=== PATIENT | female | born 2005 | race Caucasian/White ===

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

== ENCOUNTER → 2025-03-29 14:12 | Outpatient (CLI) | payer OTHER, SELFPAY ==
--- NOTE | 2025-03-29 14:13 | DI.MRI.S_ITS ---
PROCEDURE: MRFOOT LT WO CON INDICATIONS: mid foot pain TECHNIQUE: Multiphasic, multisequence MRI of the forefoot was performed, without intravenous contrast administration. COMPARISON: None. FINDINGS: Image quality: Excellent. Bones and joints: Mild edema involving plantar aspect of 5th metatarsal neck without discrete fracture line or cortical disruption. No other area of abnormal marrow signal is seen. No suspicious intraosseous lesion. Soft tissues: The visualized plantar foot muscles demonstrate normal signal and bulk. Visualized flexor and extensor tendons appear intact, without tenosynovitis. The distal insertions of the peroneus brevis and longus tendons appear intact. The principal Lisfranc ligament appears intact. No bursal fluid collections. Sagittal images demonstrate no definite plantar plate tear. Small ganglion cyst over plantar aspect of 4th MTP joint is seen. IMPRESSION: 1. Likely stress related changes involving plantar aspect of 5th metatarsal base without definite fracture line. No other area of abnormal marrow signal. No suspicious bony lesions. 2. Extensor and flexor tendons of forefoot and midfoot are intact. Lisfranc ligament is intact. 3. No gross plantar foot muscle signal abnormalities. 4. Suggestion of tiny ganglion cyst adjacent to plantar aspect of 4th MTP joint. Dictated by: Pierre Maxwell M.D. on 03/31/2025 at 9:29 Approved by: Pierre Maxwell M.D. on 03/31/2025 at 9:57
== END ==
LOC: MRI 14:13
PROVIDERS: Family Provider Family Medicine; PCP Family Medicine; Referring Provider Family Medicine; Visit Provider Family Medicine
DX: M79.672 Pain in left foot (principal)
CPT/HCPCS: 73718

== ENCOUNTER → 2025-05-26 16:43 | Outpatient (CLI) | payer OTHER, SELFPAY ==
--- NOTE | 2025-05-26 16:44 | DI.RAD.S_ITS ---
PROCEDURE: XR HAND LT MIN 3V INDICATIONS: Traumatic injury left index finger 2 days ago TECHNIQUE: 3 views of the hand(s) acquired. COMPARISON: None. FINDINGS: Bones: Splint material partially obscures detail. No fractures or dislocations. Carpal bones are normally aligned. No suspicious bony lesions. Soft tissues: No suspicious soft tissue calcifications. IMPRESSION: No acute bony abnormality. Dictated by: Ced Prater M.D. on 05/27/2025 at 6:26 Approved by: Ced Prater M.D. on 05/27/2025 at 6:36
== END ==
PROVIDERS: Family Provider Family Medicine; PCP Family Medicine; Referring Provider Family Medicine; Visit Provider Family Medicine
DX: S69.92XA Unspecified injury of left wrist, hand and finger(s), initial encounter (principal); M79.645 Pain in left finger(s); X58.XXXA Exposure to other specified factors, initial encounter
CPT/HCPCS: 73130

== ENCOUNTER 2025-07-02 15:15 | Outpatient (RCR) | payer OTHER, SELFPAY ==
--- NOTE | 2024-12-02 17:45 | PT.OPPOC ---
Physical, Occupational & Speech Therapy At [facility] Current Diagnoses Pain in right knee (12/02/24) Pain in left knee (12/02/24) Visit Care Team Role Provider Type Russ Cottrell DO Attending Provider Physician Family Provider Primary Care Provider Referring Provider Specialty: Family Practice Address: [address] [place] [address], [facility] Email: [email or web address] Plan Of Care PT-OP-B Current Condition Start: 12/02/24 17:50 Freq: Status: Active Protocol: Document 12/02/24 17:00 DCW (Rec: 12/03/24 11:29 DCW [id number]) Current Condition History of Current Condition Current Complaints Bilateral knee pain, R>L History of Current Condition Pt is a 19 year old female presenting with a history of bilateral knee pain. 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 Notes knee pain is worse with activity and kneeling. Dances consistently 3x/week. Additionally, as she is in school in [place], she doesn't have a vehicle, so she does a lot of walking, which after a mile or two starts to bother her knees. Notes she notices a lot of clicking in her knees. Has tried compression sleeves on her knees, which seemed to help some. Additionally notes she had a late diagnosis (at 17 years old) of scoliosis. Treatment Goals Patient/Caregiver Goals Decrease knee pain during dance PT-OP-T Assessment and Plan Start: 12/02/24 17:50 Freq: Status: Active Protocol: Document 12/02/24 17:00 DCW (Rec: 12/03/24 13:38 DCW [id number]) Physical Therapy Assessment Rehab Potential Rehabilitation Potential Good Evaluation Complexity Number of Personal Factors/Comorbidities 1-2 Number of Body Systems Impaired 4 or More Clinical Presentation at Evaluation Evolving Impairments Impairments Functional Activities, Functional Mobility,Pain, Strength,Tone Goals Two 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 Halfway Goal (LTG) Pt to present with improved right VMO contraction in order to improve patellofemoral tracking LTG Duration 01/30/25 One Impairment Pt does not have an appropriate home exercise program Short Term Goal (STG) Pt to be independent and compliant with an appropriate HEP STG Duration 01/02/25 Assessment Summary Assessment Pt presents with signs and symptoms consistent with referring diagnosis of bilateral knee pain. Pt displaying decreased patellofemoral tracking with signs of VMO atrophy bilaterally and likely degenerative changes. 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 Pt will likely benefit from skilled therapeutic intervention focusing on joint mobility and VMO strengthening. Current barrier to rehab is that pt is currently attending classes in [place], and in order to get to her appointments, her grandparents need to drive from [facility] to [place], and then back to [place]. Due to this travel hardship, may need to focus mainly on HEP for 1-2 more visits, and then discharge until pt is able to return to the area during her summer session, but will need to discuss with patient and grandmother over upcoming appointments. Physical Therapy Plan Frequency and Duration Frequency of Treatment 1-2x/week Plan of Care Start Date 12/02/24 Plan of Care End Date 01/30/25 Therapeutic Interventions Therapeutic Interventions Home Exercise Program,Joint Mobilizations,Manual Therapy, Neuromuscular Re-education, Patient/Caregiver Education, Self-Care/Home Management,Soft Tissue Mobilization,Taping, Therapeutic Activities, Therapeutic Exercises Modalities Electric Stimulation Next Visit Focus/Plan Next Note Type Treatment Note Next Visit Plan VMO strengthening, joint mobilization, HEP Plan of Care Dates Plan of Care Start Date 12/02/24 Plan of Care End Date 01/30/25 Electronically Signed by: Bebo Weinberg, PT 12/03/24 0797 If you are in agreement with this Plan of Care, please return a signed and dated copy. I have reviewed this Plan of Care and certify that the skilled therapy services above are required to meet the patient?s needs. Physician Signature Date Printed Name and Credentials Clinical Instructor Signature Printed Name and Credentials
--- NOTE | 2024-12-02 17:45 | PT.OIE ---
Current Diagnoses Pain in right knee (12/02/24) Pain in left knee (12/02/24) Past Medical History (Last Reviewed 11/04/24 @ 13:18 by Russ Cottrell DO) Chondromalacia patellae of right knee Depression Scoliosis (~2020) Speech apraxia Suicidal ideation Well adult exam Visit Care Team Role Provider Type Russ Cottrell DO Attending Provider Physician Family Provider Primary Care Provider Referring Provider Specialty: Family Practice Address: [address] [place] [address], [facility] Email: [email or web address] Physical Therapy Initial Evaluation PT-OP-A Visit Information Start: 12/02/24 17:50 Freq: Status: Active Protocol: Document 12/02/24 17:00 DCW (Rec: 12/02/24 17:53 DCW [id number]) Out-Patient Physical Therapy Visit Information Visit Information Visit Type Initial Evaluation Visit Note Grandmother attends first half of today's assessment Visit Start Time 17:00 Visit Stop Time 17:45 Visit Number 1 Number of CATH LAB RADIOLOGICAL TECHNOLOGIST Visits 0 Evaluation Information Evaluation Date 12/02/24 PT-OP-B Current Condition Start: 12/02/24 17:50 Freq: Status: Active Protocol: Document 12/02/24 17:00 DCW (Rec: 12/03/24 11:29 DCW [id number]) Current Condition History of Current Condition Current Complaints Bilateral knee pain, R>L History of Current Condition Pt is a 19 year old female presenting with a history of bilateral knee pain. 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 Notes knee pain is worse with activity and kneeling. Dances consistently 3x/week. Additionally, as she is in school in [place], she doesn't have a vehicle, so she does a lot of walking, which after a mile or two starts to bother her knees. Notes she notices a lot of clicking in her knees. Has tried compression sleeves on her knees, which seemed to help some. Additionally notes she had a late diagnosis (at 17 years old) of scoliosis. Treatment Goals Patient/Caregiver Goals Decrease knee pain during dance PT-OP-C Subjective Start: 12/02/24 17:50 Freq: Status: Active Protocol: Document 12/02/24 17:00 DCW (Rec: 12/03/24 11:22 DCW [id number]) OP-PT Subjective Patient Comments Patient Comments It really bothers me when I kneel, the knees just don't like direct weight. Patient Questionnaires Lower Extremity Functional Scale LEFS Score 61/80 = 76.25% PT-OP-F Manual Assessment Start: 12/02/24 17:50 Freq: Status: Active Protocol: Document 12/02/24 17:00 DCW (Rec: 12/03/24 11:22 DCW [id number]) Manual Assessments Soft Tissue Assessment Soft Tissue Mobility Assessment 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 Joint Mobility Assessment Joint Mobility Assessment Pain and crepitus with all patellar mobility PT-OP-L Special Tests Start: 12/02/24 17:50 Freq: Status: Active Protocol: Document 12/02/24 17:00 DCW (Rec: 12/03/24 11:22 DCW [id number]) Special Tests Knee Special Tests Patellar Grind Test Test Results Strongly positive R>L Patella Tap Test Results Positive bilaterally Tomasa Test Test Results Negative Cotton Chondromalacia Test Results Positive bilaterally Anterior Draw Test Results Negative PT-OP-M Strength Start: 12/02/24 17:50 Freq: Status: Active Protocol: Document 12/02/24 17:00 DCW (Rec: 12/03/24 11:22 DCW [id number]) Knee Strength Knee Manual Muscle Testing Right Flexion (S2) 4 Good Extension (L3) 4 Good Left Flexion (S2) 4+ Good+ Extension (L3) 4+ Good+ PT-OP-Q Treatments Start: 12/02/24 17:50 Freq: Status: Active Protocol: Document 12/02/24 17:00 DCW (Rec: 12/02/24 17:53 DCW [id number]) Therapeutic Exercises Supine Exercises Bridging Supine Exercise Name Bridging /c adductor ball squeeze SLR Supine Exercise Name SLR /c ER Sidelying Exercises SLR Sidelying Exercise Name SLR - Adduction Standing Exercises Lunge Standing Exercise Name Lunge with medial resistance Resistance Lv 3 Wall Squat Standing Exercise Name Wall Squat /c adductor ball squeeze PT-OP-T Assessment and Plan Start: 12/02/24 17:50 Freq: Status: Active Protocol: Document 12/02/24 17:00 KIKE (Rec: 12/03/24 13:38 [facility] [id number]) Physical Therapy Assessment Rehab Potential Rehabilitation Potential Good Evaluation Complexity Number of Personal Factors/Comorbidities 1-2 Number of Body Systems Impaired 4 or More Clinical Presentation at Evaluation Evolving Impairments Impairments Functional Activities, Functional Mobility,Pain, Strength,Tone Goals Two 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 Paralegal Instructor Goal (LTG) Pt to present with improved right VMO contraction in order to improve patellofemoral tracking LTG Duration 01/30/25 One Impairment Pt does not have an appropriate home exercise program Short Term Goal (STG) Pt to be independent and compliant with an appropriate HEP STG Duration 01/02/25 Assessment Summary Assessment Pt presents with signs and symptoms consistent with referring diagnosis of bilateral knee pain. Pt displaying decreased patellofemoral tracking with signs of VMO atrophy bilaterally and likely degenerative changes. 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 Pt will likely benefit from skilled therapeutic intervention focusing on joint mobility and VMO strengthening. Current barrier to rehab is that pt is currently attending classes in [place], and in order to get to her appointments, her grandparents need to drive from [facility] to [place], and then back to [place]. Due to this travel hardship, may need to focus mainly on HEP for 1-2 more visits, and then discharge until pt is able to return to the area during her summer session, but will need to discuss with patient and grandmother over upcoming appointments. Physical Therapy Plan Frequency and Duration Frequency of Treatment 1-2x/week Plan of Care Start Date 12/02/24 Plan of Care End Date 01/30/25 Therapeutic Interventions Therapeutic Interventions Home Exercise Program,Joint Mobilizations,Manual Therapy, Neuromuscular Re-education, Patient/Caregiver Education, Self-Care/Home Management,Soft Tissue Mobilization,Taping, Therapeutic Activities, Therapeutic Exercises Modalities Electric Stimulation Next Visit Focus/Plan Next Note Type Treatment Note Next Visit Plan VMO strengthening, joint mobilization, HEP
--- NOTE | 2024-12-02 17:45 | PT.OPPOC ---
Physical, Occupational & Speech Therapy At [facility] Current Diagnoses Pain in right knee (12/02/24) Pain in left knee (12/02/24) Visit Care Team Role Provider Type Russ Cottrell DO Attending Provider Physician Family Provider Primary Care Provider Referring Provider Specialty: Family Practice Address: [address] [place] [address], [facility] Email: [email or web address] Plan Of Care PT-OP-B Current Condition Start: 12/02/24 17:50 Freq: Status: Active Protocol: Document 12/02/24 17:00 DCW (Rec: 12/03/24 11:29 DCW [id number]) Current Condition History of Current Condition Current Complaints Bilateral knee pain, R>L History of Current Condition Pt is a 19 year old female presenting with a history of bilateral knee pain. 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 Notes knee pain is worse with activity and kneeling. Dances consistently 3x/week. Additionally, as she is in school in [place], she doesn't have a vehicle, so she does a lot of walking, which after a mile or two starts to bother her knees. Notes she notices a lot of clicking in her knees. Has tried compression sleeves on her knees, which seemed to help some. Additionally notes she had a late diagnosis (at 17 years old) of scoliosis. 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 Pt displaying decreased patellofemoral tracking with signs of VMO atrophy bilaterally and likely degenerative changes. 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 Pt will likely benefit from skilled therapeutic intervention focusing on joint mobility and VMO strengthening. Current barrier to rehab is that pt is currently attending classes in [place], and in order to get to her appointments, her grandparents need to drive from [facility] to [place], and then back to [place]. Due to this travel hardship, may need to focus mainly on HEP for 1-2 more visits, and then discharge until pt is able to return to the area during her summer session, but will need to discuss with patient and grandmother over upcoming appointments. Physical Therapy Plan Frequency and Duration Frequency of Treatment 1-2x/week Plan of Care Start Date 12/02/24 Plan of Care End Date 01/30/25 Therapeutic Interventions Therapeutic Interventions Home Exercise Program,Joint Mobilizations,Manual Therapy, Neuromuscular Re-education, Patient/Caregiver Education, Self-Care/Home Management,Soft Tissue Mobilization,Taping, Therapeutic Activities, Therapeutic Exercises Modalities Electric Stimulation Next Visit Focus/Plan Next Note Type Treatment Note Next Visit Plan VMO strengthening, joint mobilization, HEP Plan of Care Dates Plan of Care Start Date 12/02/24 Plan of Care End Date 01/30/25 Electronically Signed by: Bebo Weinberg, PT 12/03/24 [id number] If you are in agreement with this Plan of Care, please return a signed and dated copy. I have reviewed this Plan of Care and certify that the skilled therapy services above are required to meet the patient?s needs. Physician Signature Date Printed Name and Credentials Clinical Instructor Signature Printed Name and Credentials
--- NOTE | 2024-12-04 17:45 | PT.OTN ---
Current Diagnoses Pain in right knee (12/04/24) Pain in left knee (12/04/24) Physical Therapy Treatment Note PT-OP-A Visit Information Start: 12/02/24 17:50 Freq: Status: Active Protocol: Document 12/04/24 17:03 DCW (Rec: 12/04/24 17:55 DCW [id number]) Out-Patient Physical Therapy Visit Information Visit Information Visit Type Treatment Note Visit Start Time 17:03 Visit Stop Time 17:45 Visit Number 2 Number of SCRUM PROJECT MANAGER Visits 0 Evaluation Information Evaluation Date 12/02/24 PT-OP-B Current Condition Start: 12/02/24 17:50 Freq: Status: Active Protocol: Document 12/02/24 17:00 DCW (Rec: 12/03/24 11:29 DCW [id number]) Current Condition History of Current Condition Current Complaints Bilateral knee pain, R>L History of Current Condition Pt is a 19 year old female presenting with a history of bilateral knee pain. 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 Notes knee pain is worse with activity and kneeling. Dances consistently 3x/week. Additionally, as she is in school in [place], she doesn't have a vehicle, so she does a lot of walking, which after a mile or two starts to bother her knees. Notes she notices a lot of clicking in her knees. Has tried compression sleeves on her knees, which seemed to help some. Additionally notes she had a late diagnosis (at 17 years old) of scoliosis. 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 Joint Mobility Assessment Joint Mobility Assessment Pain and crepitus with all patellar mobility PT-OP-L Special Tests Start: 12/02/24 17:50 Freq: Status: Active Protocol: Document 12/02/24 17:00 DCW (Rec: 12/03/24 11:22 ILW [id number]) Special Tests Knee Special Tests Patellar Grind Test Test Results Strongly positive R>L Patella Tap Test Results Positive bilaterally Tomasa Test Test Results Negative Cotton Chondromalacia Test Results Positive bilaterally Anterior Draw Test Results Negative PT-OP-M Strength Start: 12/02/24 17:50 Freq: Status: Active Protocol: Document 12/02/24 17:00 DCW (Rec: 12/03/24 11:22 ILW [id number]) Knee Strength Knee Manual Muscle Testing Right Flexion (S2) 4 Good Extension (L3) 4 Good Left Flexion (S2) 4+ Good+ Extension (L3) 4+ Good+ PT-OP-Q Treatments Start: 12/02/24 17:50 Freq: Status: Active Protocol: Document 12/04/24 17:03 DCW (Rec: 12/04/24 17:55 DCW [id number]) Gym Equipment Therapeutic Ball Bridging Exercise Details Bridging /c feet on T-ball Ball Size/Color Red - 55 cm Body Position Supine Therapeutic Exercises Supine Exercises Bridging Supine Exercise Name Bridging /c adductor ball squeeze SLR Supine Exercise Name SLR /c ER Standing Exercises ER/IR Standing Exercise Name Half-kneel on stool Side bilateral Resistance Lv 3 BOSU Lunge Standing Exercise Name BOSU Lunge Side bilateral Manual Therapy Treatment Taping Patellofemoral Body Location B PF taping Treatment Focus Increase medial patellar pull Type of Tape Kinesio Tape PT-OP-T Assessment and Plan Start: 12/02/24 17:50 Freq: Status: Active Protocol: Document 12/04/24 17:03 DCW (Rec: 12/04/24 17:55 DC [id number]) Physical Therapy Assessment Impairments Impairments Functional Activities, Functional Mobility,Pain, Strength,Tone Goals Two 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 They were very agreeable to this plan. Reviewed most of HEP today, in addition to trial of K-tape and adding instability to lunges. Physical Therapy Plan Frequency and Duration Frequency of Treatment 1-2x/week Plan of Care Start Date 12/02/24 Plan of Care End Date 01/30/25 Therapeutic Interventions Therapeutic Interventions Home Exercise Program,Joint Mobilizations,Manual Therapy, Neuromuscular Re-education, Patient/Caregiver Education, Self-Care/Home Management,Soft Tissue Mobilization,Taping, Therapeutic Activities, Therapeutic Exercises Modalities Electric Stimulation Next Visit Focus/Plan Next Note Type Treatment Note Next Visit Plan VMO strengthening, joint mobilization, HEP
--- NOTE | 2025-01-10 16:27 | PT.OTN ---
Current Diagnoses Pain in right knee (01/10/25) Pain in left knee (01/10/25) Physical Therapy Treatment Note PT-OP-A Visit Information Start: 12/02/24 17:50 Freq: Status: Active Protocol: Document 01/10/25 15:20 DCW (Rec: 01/10/25 16:27 DCW [id number]) Out-Patient Physical Therapy Visit Information Visit Information Visit Type Treatment Note Visit Start Time 15:20 Visit Stop Time 16:00 Visit Number 3 Number of AUXILIARY EQUIPMENT TENDER Visits 0 Evaluation Information Evaluation Date 12/02/24 PT-OP-B Current Condition Start: 12/02/24 17:50 Freq: Status: Active Protocol: Document 12/02/24 17:00 DCW (Rec: 12/03/24 11:29 DCW [id number]) Current Condition History of Current Condition Current Complaints Bilateral knee pain, R>L History of Current Condition Pt is a 19 year old female presenting with a history of bilateral knee pain. 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 Notes knee pain is worse with activity and kneeling. Dances consistently 3x/week. Additionally, as she is in school in [place], she doesn't have a vehicle, so she does a lot of walking, which after a mile or two starts to bother her knees. Notes she notices a lot of clicking in her knees. Has tried compression sleeves on her knees, which seemed to help some. Additionally notes she had a late diagnosis (at 17 years old) of scoliosis. Treatment Goals Patient/Caregiver Goals Decrease knee pain during dance PT-OP-C Subjective Start: 12/02/24 17:50 Freq: Status: Active Protocol: Document 01/10/25 15:20 DCW (Rec: 01/10/25 16:27 DCW [id number]) OP-PT Subjective Patient Comments Patient Comments Pt suffered a left foot injury last Monday, was seen at [facility], x-rays showed no fracture, pt was told to get crutches and stay NWB on left foot. 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 Joint Mobility Assessment Joint Mobility Assessment Pain and crepitus with all patellar mobility PT-OP-L Special Tests Start: 12/02/24 17:50 Freq: Status: Active Protocol: Document 12/02/24 17:00 DCW (Rec: 12/03/24 11:22 DCW [id number]) Special Tests Knee Special Tests Patellar Grind Test Test Results Strongly positive R>L Patella Tap Test Results Positive bilaterally Tomasa Test Test Results Negative Cotton Chondromalacia Test Results Positive bilaterally Anterior Draw Test Results Negative PT-OP-M Strength Start: 12/02/24 17:50 Freq: Status: Active Protocol: Document 12/02/24 17:00 DCW (Rec: 12/03/24 11:22 DCW [id number]) Knee Strength Knee Manual Muscle Testing Right Flexion (S2) 4 Good Extension (L3) 4 Good Left Flexion (S2) 4+ Good+ Extension (L3) 4+ Good+ PT-OP-Q Treatments Start: 12/02/24 17:50 Freq: Status: Active Protocol: Document 01/10/25 15:20 DCW (Rec: 01/10/25 16:27 DCW [id number]) Therapeutic Exercises Sitting Exercises Mattoon pick-up Sitting Exercise Name Mattoon pick-up Towel Crunch Sitting Exercise Name Towel crunch Short Foot Sitting Exercise Name Short Foor Manual Therapy Treatment Consent Patient gave verbal consent for manual Yes treatment Soft Tissue Mobilization LE Body Location Lower Extremity STM, calf, intrinsic foot musculature PT-OP-T Assessment and Plan Start: 12/02/24 17:50 Freq: Status: Active Protocol: Document 01/10/25 15:20 DCW (Rec: 01/10/25 16:27 DCW [id number]) Physical Therapy Assessment Impairments Impairments Functional Activities, Functional Mobility,Pain, Strength,Tone Goals Two 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 Spent time on intrinsic foot stabilization to help stabilize knee/patella. Physical Therapy Plan Frequency and Duration Frequency of Treatment 1-2x/week Plan of Care Start Date 12/02/24 Plan of Care End Date 01/30/25 Therapeutic Interventions Therapeutic Interventions Home Exercise Program,Joint Mobilizations,Manual Therapy, Neuromuscular Re-education, Patient/Caregiver Education, Self-Care/Home Management,Soft Tissue Mobilization,Taping, Therapeutic Activities, Therapeutic Exercises Modalities Electric Stimulation Next Visit Focus/Plan Next Note Type Progress Note Next Visit Plan VMO strengthening, joint mobilization, HEP
--- NOTE | 2025-01-20 16:10 | PT.OTN ---
Current Diagnoses Pain in right knee (01/20/25) Pain in left knee (01/20/25) Physical Therapy Treatment Note PT-OP-A Visit Information Start: 12/02/24 17:50 Freq: Status: Active Protocol: Document 01/20/25 15:15 DCW (Rec: 01/20/25 16:09 DCW [id number]) Out-Patient Physical Therapy Visit Information Visit Information Visit Type Progress Note Visit Start Time 15:15 Visit Stop Time 16:00 Visit Number 4 Number of FRAMING MILL OPERATOR Visits 0 Evaluation Information Evaluation Date 12/02/24 PT-OP-B Current Condition Start: 12/02/24 17:50 Freq: Status: Active Protocol: Document 12/02/24 17:00 DCW (Rec: 12/03/24 11:29 DCW [id number]) Current Condition History of Current Condition Current Complaints Bilateral knee pain, R>L History of Current Condition Pt is a 19 year old female presenting with a history of bilateral knee pain. 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 Notes knee pain is worse with activity and kneeling. Dances consistently 3x/week. Additionally, as she is in school in [place], she doesn't have a vehicle, so she does a lot of walking, which after a mile or two starts to bother her knees. Notes she notices a lot of clicking in her knees. Has tried compression sleeves on her knees, which seemed to help some. Additionally notes she had a late diagnosis (at 17 years old) of scoliosis. Treatment Goals Patient/Caregiver Goals Decrease knee pain during dance PT-OP-C Subjective Start: 12/02/24 17:50 Freq: Status: Active Protocol: Document 01/20/25 15:15 DCW (Rec: 01/20/25 16:09 DCW [id number]) OP-PT Subjective Patient Comments Patient Comments Is able to perform non-weight bearing HEP during her dance classes instead of the class work as long as she pays attention. 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 Joint Mobility Assessment Joint Mobility Assessment Pain and crepitus with all patellar mobility PT-OP-L Special Tests Start: 12/02/24 17:50 Freq: Status: Active Protocol: Document 12/02/24 17:00 DCW (Rec: 12/03/24 11:22 DCW [id number]) Special Tests Knee Special Tests Patellar Grind Test Test Results Strongly positive R>L Patella Tap Test Results Positive bilaterally Tomasa Test Test Results Negative Cotton Chondromalacia Test Results Positive bilaterally Anterior Draw Test Results Negative PT-OP-M Strength Start: 12/02/24 17:50 Freq: Status: Active Protocol: Document 12/02/24 17:00 DCW (Rec: 12/03/24 11:22 [id number]) Knee Strength Knee Manual Muscle Testing Right Flexion (S2) 4 Good Extension (L3) 4 Good Left Flexion (S2) 4+ Good+ Extension (L3) 4+ Good+ PT-OP-Q Treatments Start: 12/02/24 17:50 Freq: Status: Active Protocol: Document 01/20/25 15:15 DCW (Rec: 01/20/25 16:09 DCW [id number]) Gym Equipment Therapeutic Ball Hip Flexion Exercise Details Resisted hip/knee flexion Ball Size/Color Red - 55 cm Lv 3 T-band Bridging Exercise Details Bridging /c feet on T-ball Ball Size/Color Red - 55 cm Body Position Supine Comments Added Hamstring Curls Therapeutic Exercises Sitting Exercises Ankle Flexion Sitting Exercise Name 4-way ankle flexion Side bilateral Resistance Lv 3 PT-OP-T Assessment and Plan Start: 12/02/24 17:50 Freq: Status: Active Protocol: Document 01/20/25 15:15 DCW (Rec: 01/20/25 16:09 DCW [id number]) Physical Therapy Assessment Impairments Impairments Functional Activities, Functional Mobility,Pain, Strength,Tone Goals Two 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 NWB has resulted in increased right knee pain. continue to focus on functional mobility, pain- control, and return to sport. Physical Therapy Plan Frequency and Duration Frequency of Treatment 1-2x/week Plan of Care Start Date 01/20/25 Plan of Care End Date 04/20/25 Therapeutic Interventions Therapeutic Interventions Home Exercise Program,Joint Mobilizations,Manual Therapy, Neuromuscular Re-education, Patient/Caregiver Education, Self-Care/Home Management,Soft Tissue Mobilization,Taping, Therapeutic Activities, Therapeutic Exercises Modalities Electric Stimulation Next Visit Focus/Plan Next Note Type Treatment Note Next Visit Plan VMO strengthening, joint mobilization, HEP
--- NOTE | 2025-01-20 16:11 | PT.OPPOC ---
Physical, Occupational & Speech Therapy At [facility] Current Diagnoses Pain in right knee (01/20/25) Pain in left knee (01/20/25) Visit Care Team Role Provider Type Russ Cottrell DO Attending Provider Physician Family Provider Primary Care Provider Referring Provider Specialty: Family Practice Address: [address] [place] [address], [facility] Email: [email or web address] Plan Of Care PT-OP-B Current Condition Start: 12/02/24 17:50 Freq: Status: Active Protocol: Document 12/02/24 17:00 DCW (Rec: 12/03/24 11:29 DCW [id number]) Current Condition History of Current Condition Current Complaints Bilateral knee pain, R>L History of Current Condition Pt is a 19 year old female presenting with a history of bilateral knee pain. 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 Notes knee pain is worse with activity and kneeling. Dances consistently 3x/week. Additionally, as she is in school in [place], she doesn't have a vehicle, so she does a lot of walking, which after a mile or two starts to bother her knees. Notes she notices a lot of clicking in her knees. Has tried compression sleeves on her knees, which seemed to help some. Additionally notes she had a late diagnosis (at 17 years old) of scoliosis. 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 NWB has resulted in increased right knee pain. continue to focus on functional mobility, pain- control, and return to sport. Physical Therapy Plan Frequency and Duration Frequency of Treatment 1-2x/week Plan of Care Start Date 01/20/25 Plan of Care End Date 04/20/25 Therapeutic Interventions Therapeutic Interventions Home Exercise Program,Joint Mobilizations,Manual Therapy, Neuromuscular Re-education, Patient/Caregiver Education, Self-Care/Home Management,Soft Tissue Mobilization,Taping, Therapeutic Activities, Therapeutic Exercises Modalities Electric Stimulation Next Visit Focus/Plan Next Note Type Treatment Note Next Visit Plan VMO strengthening, joint mobilization, HEP Plan of Care Dates Plan of Care Start Date 01/20/25 Plan of Care End Date 04/20/25 Electronically Signed by: Bebo Weinberg, PT 01/20/25 [id number] If you are in agreement with this Plan of Care, please return a signed and dated copy. I have reviewed this Plan of Care and certify that the skilled therapy services above are required to meet the patient?s needs. Physician Signature Date Printed Name and Credentials Clinical Instructor Signature Printed Name and Credentials
--- NOTE | 2025-02-21 15:16 | PT.OTN ---
Current Diagnoses Pain in right knee (02/21/25) Pain in left knee (02/21/25) Physical Therapy Treatment Note PT-OP-A Visit Information Start: 12/02/24 17:50 Freq: Status: Active Protocol: Document 02/21/25 14:30 DCW (Rec: 02/21/25 15:16 DCW [id number]) Out-Patient Physical Therapy Visit Information Visit Information Visit Type Treatment Note Visit Start Time 14:30 Visit Stop Time 15:15 Visit Number 5 Number of CORE JAVA ENGINEER Visits 0 Evaluation Information Evaluation Date 12/02/24 PT-OP-B Current Condition Start: 12/02/24 17:50 Freq: Status: Active Protocol: Document 12/02/24 17:00 DCW (Rec: 12/03/24 11:29 DCW [id number]) Current Condition History of Current Condition Current Complaints Bilateral knee pain, R>L History of Current Condition Pt is a 19 year old female presenting with a history of bilateral knee pain. 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 Notes knee pain is worse with activity and kneeling. Dances consistently 3x/week. Additionally, as she is in school in [place], she doesn't have a vehicle, so she does a lot of walking, which after a mile or two starts to bother her knees. Notes she notices a lot of clicking in her knees. Has tried compression sleeves on her knees, which seemed to help some. Additionally notes she had a late diagnosis (at 17 years old) of scoliosis. Treatment Goals Patient/Caregiver Goals Decrease knee pain during dance PT-OP-C Subjective Start: 12/02/24 17:50 Freq: Status: Active Protocol: Document 02/21/25 14:30 DCW (Rec: 02/21/25 15:16 DCW [id number]) OP-PT Subjective Patient Comments Patient Comments Pt notes increased bilateral ankle pain when up walking. Has had a few dance classes, and she's not fully participating, but is getting back into it. Notes some cramping in her right foot. PT-OP-F Manual Assessment Start: 12/02/24 17:50 Freq: Status: Active Protocol: Document 12/02/24 17:00 DCW (Rec: 12/03/24 11:22 DCW [id number]) Manual Assessments Soft Tissue Assessment Soft Tissue Mobility Assessment 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 Joint Mobility Assessment Joint Mobility Assessment Pain and crepitus with all patellar mobility PT-OP-L Special Tests Start: 12/02/24 17:50 Freq: Status: Active Protocol: Document 12/02/24 17:00 DCW (Rec: 12/03/24 11:22 DCW [id number]) Special Tests Knee Special Tests Patellar Grind Test Test Results Strongly positive R>L Patella Tap Test Results Positive bilaterally Tomasa Test Test Results Negative Cotton Chondromalacia Test Results Positive bilaterally Anterior Draw Test Results Negative PT-OP-M Strength Start: 12/02/24 17:50 Freq: Status: Active Protocol: Document 12/02/24 17:00 DCW (Rec: 12/03/24 11:22 DCW [id number]) Knee Strength Knee Manual Muscle Testing Right Flexion (S2) 4 Good Extension (L3) 4 Good Left Flexion (S2) 4+ Good+ Extension (L3) 4+ Good+ PT-OP-Q Treatments Start: 12/02/24 17:50 Freq: Status: Active Protocol: Document 02/21/25 14:30 DCW (Rec: 02/21/25 15:16 DCW [id number]) Gym Equipment Therapeutic Ball Bridging Exercise Details Bridging /c feet on T-ball Ball Size/Color Red - 55 cm Body Position Supine Comments Hamstring Curls Therapeutic Exercises Sitting Exercises Abduction Sitting Exercise Name Hip Abduction Side bilateral Resistance Blue Loop Reps/Minutes 1 minute hold x2 Self STM Sitting Exercise Name Self rolling calf Side right Manual Therapy Treatment Consent Patient gave verbal consent for manual Yes treatment Soft Tissue Mobilization LE Body Location Lower Extremity STM, calf, Hamstring PT-OP-T Assessment and Plan Start: 12/02/24 17:50 Freq: Status: Active Protocol: Document 02/21/25 14:30 DCW (Rec: 02/21/25 15:16 DCW [id number]) Physical Therapy Assessment Impairments Impairments Functional Activities, Functional Mobility,Pain, Strength,Tone Goals Two 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 [facility] Goal (LTG) Pt to present with improved right VMO contraction in order to improve patellofemoral tracking LTG Duration 04/20/25 One Impairment Pt does not have an appropriate home exercise program Short Term Goal (STG) Pt to be independent and compliant with an appropriate HEP STG Duration 03/20/25 Assessment Summary Assessment Pt continuing to experience knee pain, has been slightly worse since her foot injury, due to changes to her gait, but is returning to somewhat normalized gait pattern, will hopefully help with decreasing knee pain. Continue working on knee strengthening and mobility. Physical Therapy Plan Frequency and Duration Frequency of Treatment 1-2x/week Plan of Care Start Date 01/20/25 Plan of Care End Date 04/20/25 Therapeutic Interventions Therapeutic Interventions Home Exercise Program,Joint Mobilizations,Manual Therapy, Neuromuscular Re-education, Patient/Caregiver Education, Self-Care/Home Management,Soft Tissue Mobilization,Taping, Therapeutic Activities, Therapeutic Exercises Modalities Electric Stimulation Next Visit Focus/Plan Next Note Type Treatment Note Next Visit Plan VMO strengthening, joint mobilization, HEP
--- NOTE | 2025-03-26 12:59 | PT.OTN ---
Current Diagnoses Pain in right knee (03/26/25) Pain in left knee (03/26/25) Physical Therapy Treatment Note PT-OP-A Visit Information Start: 12/02/24 17:50 Freq: Status: Active Protocol: Document 03/26/25 12:18 DCW (Rec: 03/26/25 12:59 DCW [id number]) Out-Patient Physical Therapy Visit Information Visit Information Visit Type Treatment Note Visit Start Time 12:18 Visit Stop Time 13:00 Visit Number 6 Number of ELECTRONICS REPAIR TECHNICIAN Visits 0 Evaluation Information Evaluation Date 12/02/24 PT-OP-B Current Condition Start: 12/02/24 17:50 Freq: Status: Active Protocol: Document 12/02/24 17:00 DCW (Rec: 12/03/24 11:29 DCW [id number]) Current Condition History of Current Condition Current Complaints Bilateral knee pain, R>L History of Current Condition Pt is a 19 year old female presenting with a history of bilateral knee pain. 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 Notes knee pain is worse with activity and kneeling. Dances consistently 3x/week. Additionally, as she is in school in [place], she doesn't have a vehicle, so she does a lot of walking, which after a mile or two starts to bother her knees. Notes she notices a lot of clicking in her knees. Has tried compression sleeves on her knees, which seemed to help some. Additionally notes she had a late diagnosis (at 17 years old) of scoliosis. Treatment Goals Patient/Caregiver Goals Decrease knee pain during dance PT-OP-C Subjective Start: 12/02/24 17:50 Freq: Status: Active Protocol: Document 03/26/25 12:18 DCW (Rec: 03/26/25 12:59 DCW [id number]) OP-PT Subjective Patient Comments Patient Comments Everything is flared up right now. Notes her knee is pretty bad, and her previously injured foot was quite sore earlier, but doing a bit better after icing. [place] she was getting better up until the recent set backs. PT-OP-F Manual Assessment Start: 12/02/24 17:50 Freq: Status: Active Protocol: Document 12/02/24 17:00 DCW (Rec: 12/03/24 11:22 DCW [id number]) Manual Assessments Soft Tissue Assessment Soft Tissue Mobility Assessment 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 Joint Mobility Assessment Joint Mobility Assessment Pain and crepitus with all patellar mobility PT-OP-L Special Tests Start: 12/02/24 17:50 Freq: Status: Active Protocol: Document 12/02/24 17:00 DCW (Rec: 12/03/24 11:22 WYW [id number]) Special Tests Knee Special Tests Patellar Grind Test Test Results Strongly positive R>L Patella Tap Test Results Positive bilaterally Tomasa Test Test Results Negative Cotton Chondromalacia Test Results Positive bilaterally Anterior Draw Test Results Negative PT-OP-M Strength Start: 12/02/24 17:50 Freq: Status: Active Protocol: Document 12/02/24 17:00 DCW (Rec: 12/03/24 11:22 WYW [id number]) Knee Strength Knee Manual Muscle Testing Right Flexion (S2) 4 Good Extension (L3) 4 Good Left Flexion (S2) 4+ Good+ Extension (L3) 4+ Good+ PT-OP-Q Treatments Start: 12/02/24 17:50 Freq: Status: Active Protocol: Document 03/26/25 12:18 DCW (Rec: 03/26/25 12:59 [facility] [id number]) Gym Equipment Shuttle Recovery Bilateral Squats Details Add ball squeeze Resistance 75# Shuttle Recovery Platform Stable,Unstable Hopping Details Plyometric Hopping Resistance 25# Shuttle Balance Red Details Lateral weight shift Therapeutic Ball Bridging Exercise Details Bridging /c feet on T-ball Ball Size/Color Red - 55 cm Body Position Supine Comments Hamstring Curls Manual Therapy Treatment Consent Patient gave verbal consent for manual Yes treatment Soft Tissue Mobilization LE Body Location Lower Extremity STM, calf, Hamstring Joint Mobilizations Patella Joint R Patella Direction All directions Grade III Body Position Supine PT-OP-T Assessment and Plan Start: 12/02/24 17:50 Freq: Status: Active Protocol: Document 03/26/25 12:18 DCW (Rec: 03/26/25 12:59 WYW [id number]) Physical Therapy Assessment Impairments Impairments Functional Activities, Functional Mobility,Pain, Strength,Tone Goals Two 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 Health And Safety Director Goal (LTG) Pt to present with improved right VMO contraction in order to improve patellofemoral tracking LTG Duration 04/20/25 One Impairment Pt does not have an appropriate home exercise program Short Term Goal (STG) Pt to be independent and compliant with an appropriate HEP STG Duration 03/20/25 Assessment Summary Assessment Increased tenderness to palpation today, pt fairly sore with all manual treatment , as well as notable increased edema under patella. Pt tolerated strengthening fairly well. Continue to focus on joint stability, LE strengthening, and return to prior functional levels. Physical Therapy Plan Frequency and Duration Frequency of Treatment 1-2x/week Plan of Care Start Date 01/20/25 Plan of Care End Date 04/20/25 Therapeutic Interventions Therapeutic Interventions Home Exercise Program,Joint Mobilizations,Manual Therapy, Neuromuscular Re-education, Patient/Caregiver Education, Self-Care/Home Management,Soft Tissue Mobilization,Taping, Therapeutic Activities, Therapeutic Exercises Modalities Electric Stimulation Next Visit Focus/Plan Next Note Type Treatment Note Next Visit Plan VMO strengthening, joint mobilization, HEP
--- NOTE | 2025-04-04 15:17 | PT.OTN ---
Current Diagnoses Pain in right knee (04/04/25) Pain in left knee (04/04/25) Physical Therapy Treatment Note PT-OP-A Visit Information Start: 12/02/24 17:50 Freq: Status: Active Protocol: Document 04/04/25 14:30 DCW (Rec: 04/04/25 15:14 DCW [id number]) Out-Patient Physical Therapy Visit Information Visit Information Visit Type Treatment Note Visit Start Time 14:30 Visit Stop Time 15:15 Visit Number 7 Number of PRESCRIPTION BENEFIT SPECIALIST Visits 0 Evaluation Information Evaluation Date 12/02/24 PT-OP-B Current Condition Start: 12/02/24 17:50 Freq: Status: Active Protocol: Document 12/02/24 17:00 DCW (Rec: 12/03/24 11:29 DCW [id number]) Current Condition History of Current Condition Current Complaints Bilateral knee pain, R>L History of Current Condition Pt is a 19 year old female presenting with a history of bilateral knee pain. 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 Notes knee pain is worse with activity and kneeling. Dances consistently 3x/week. Additionally, as she is in school in [place], she doesn't have a vehicle, so she does a lot of walking, which after a mile or two starts to bother her knees. Notes she notices a lot of clicking in her knees. Has tried compression sleeves on her knees, which seemed to help some. Additionally notes she had a late diagnosis (at 17 years old) of scoliosis. Treatment Goals Patient/Caregiver Goals Decrease knee pain during dance PT-OP-C Subjective Start: 12/02/24 17:50 Freq: Status: Active Protocol: Document 04/04/25 14:30 DCW (Rec: 04/04/25 15:14 DCW [id number]) OP-PT Subjective Patient Comments Patient Comments Notes she had an MRI on her foot, no results yet. Reports her foot was twitching during her MRI. Also notes left distal thigh pain. 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 Joint Mobility Assessment Joint Mobility Assessment Pain and crepitus with all patellar mobility PT-OP-L Special Tests Start: 12/02/24 17:50 Freq: Status: Active Protocol: Document 12/02/24 17:00 DCW (Rec: 12/03/24 11:22 DCW [id number]) Special Tests Knee Special Tests Patellar Grind Test Test Results Strongly positive R>L Patella Tap Test Results Positive bilaterally Tomasa Test Test Results Negative Cotton Chondromalacia Test Results Positive bilaterally Anterior Draw Test Results Negative PT-OP-M Strength Start: 12/02/24 17:50 Freq: Status: Active Protocol: Document 12/02/24 17:00 DCW (Rec: 12/03/24 11:22 DCW [id number]) Knee Strength Knee Manual Muscle Testing Right Flexion (S2) 4 Good Extension (L3) 4 Good Left Flexion (S2) 4+ Good+ Extension (L3) 4+ Good+ PT-OP-Q Treatments Start: 12/02/24 17:50 Freq: Status: Active Protocol: Document 04/04/25 14:30 DCW (Rec: 04/04/25 15:14 DCW [id number]) Gym Equipment Shuttle Recovery Bilateral Squats Details Add ball squeeze Resistance 75#->87# Shuttle Recovery Platform Unstable Hopping Details Plyometric Hopping Resistance 25# Therapeutic Ball Bridging Exercise Details Bridging /c feet on T-ball Ball Size/Color Red - 55 cm Body Position Supine Comments Hamstring Curls Therapeutic Exercises Supine Exercises ITB Stretch Supine Exercise Name Supine ITB Stretch Side bilateral Manual Therapy Treatment Consent Patient gave verbal consent for manual Yes treatment Soft Tissue Mobilization LE Body Location Lower Extremity STM, calf, Hamstring L>R Joint Mobilizations Patella Joint R Patella Direction All directions Grade III Body Position Supine PT-OP-R Modalities Start: 04/04/25 15:14 Freq: Status: Active Protocol: Document 04/04/25 14:30 DCW (Rec: 04/04/25 15:17 DCW [id number]) Electric Stimulation Electric Stimulation Maltese Stimulation Body Location R VMO Intensity 22.5 Patient Position Sitting Comments LAQ with contraction, 5 on/5 off PT-OP-T Assessment and Plan Start: 12/02/24 17:50 Freq: Status: Active Protocol: Document 04/04/25 14:30 DCW (Rec: 04/04/25 15:14 DCW [id number]) Physical Therapy Assessment Impairments Impairments Functional Activities, Functional Mobility,Pain, Strength,Tone Goals Two 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 [facility] Goal (LTG) Pt to present with improved right VMO contraction in order to improve patellofemoral tracking LTG Duration 04/20/25 One Impairment Pt does not have an appropriate home exercise program Short Term Goal (STG) Pt to be independent and compliant with an appropriate HEP STG Duration 03/20/25 Assessment Summary Assessment Attempted Maltese stim to help VMO contraction, pt only tolerated for two minutes, however afterward did show increased R VMO activation. Overall, continues to be fairly limited by knee pain, but foot pain is getting better. Continue to focus on patella tracking and VMO strengthening. Physical Therapy Plan Frequency and Duration Frequency of Treatment 1-2x/week Plan of Care Start Date 01/20/25 Plan of Care End Date 04/20/25 Therapeutic Interventions Therapeutic Interventions Home Exercise Program,Joint Mobilizations,Manual Therapy, Neuromuscular Re-education, Patient/Caregiver Education, Self-Care/Home Management,Soft Tissue Mobilization,Taping, Therapeutic Activities, Therapeutic Exercises Modalities Electric Stimulation Next Visit Focus/Plan Next Note Type Treatment Note Next Visit Plan VMO strengthening, joint mobilization, HEP
--- NOTE | 2025-04-09 14:48 | PT.OTN ---
Current Diagnoses Pain in right knee (04/09/25) Pain in left knee (04/09/25) Physical Therapy Treatment Note PT-OP-A Visit Information Start: 12/02/24 17:50 Freq: Status: Active Protocol: Document 04/09/25 13:43 AB (Rec: 04/09/25 14:44 AB Laptop) Out-Patient Physical Therapy Visit Information Visit Information Visit Type Treatment Note Visit Start Time 13:48 Visit Stop Time 14:34 Visit Number 8 Number of QUALITY CONTROL ENGINEER Visits 1 PT-OP-B Current Condition Start: 12/02/24 17:50 Freq: Status: Active Protocol: Document 12/02/24 17:00 DCW (Rec: 12/03/24 11:29 DCW [id number]) Current Condition History of Current Condition Current Complaints Bilateral knee pain, R>L History of Current Condition Pt is a 19 year old female presenting with a history of bilateral knee pain. 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 Notes knee pain is worse with activity and kneeling. Dances consistently 3x/week. Additionally, as she is in school in [place], she doesn't have a vehicle, so she does a lot of walking, which after a mile or two starts to bother her knees. Notes she notices a lot of clicking in her knees. Has tried compression sleeves on her knees, which seemed to help some. Additionally notes she had a late diagnosis (at 17 years old) of scoliosis. Treatment Goals Patient/Caregiver Goals Decrease knee pain during dance PT-OP-C Subjective Start: 12/02/24 17:50 Freq: Status: Active Protocol: Document 04/09/25 13:43 AB (Rec: 04/09/25 14:44 AB Laptop) OP-PT Subjective Patient Comments Patient Comments Patient reports she is going to get her MRI results tomorrow. 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 Joint Mobility Assessment Joint Mobility Assessment Pain and crepitus with all patellar mobility PT-OP-L Special Tests Start: 12/02/24 17:50 Freq: Status: Active Protocol: Document 12/02/24 17:00 DCW (Rec: 12/03/24 11:22 DCW [id number]) Special Tests Knee Special Tests Patellar Grind Test Test Results Strongly positive R>L Patella Tap Test Results Positive bilaterally oTmasa Test Test Results Negative Cotton Chondromalacia Test Results Positive bilaterally Anterior Draw Test Results Negative PT-OP-M Strength Start: 12/02/24 17:50 Freq: Status: Active Protocol: Document 12/02/24 17:00 DCW (Rec: 12/03/24 11:22 DCW [id number]) Knee Strength Knee Manual Muscle Testing Right Flexion (S2) 4 Good Extension (L3) 4 Good Left Flexion (S2) 4+ Good+ Extension (L3) 4+ Good+ PT-OP-Q Treatments Start: 12/02/24 17:50 Freq: Status: Active Protocol: Document 04/09/25 13:43 AB (Rec: 04/09/25 14:44 AB Laptop) Therapeutic Exercises Supine Exercises SLR Supine Exercise Name SLR /c ER Reps/Minutes X15 Comments Verbal cues Sidelying Exercises sidelying hip abd Sidelying Exercise Name HEP Side bilateral Resistance level 4 band Reps/Minutes X 15 each LE then one minute R LE .5 min L LE for activation Therapeutic Activity Therapeutic Activity stairs Reps/Minutes 4 six inch steps with and without rails X 3/reciprocal pattern. Comments Verbal and visual cues for less quad dominant pattern Manual Therapy Treatment Soft Tissue Mobilization LE Body Location Lower Extremity STM, calf, Hamstring L>R Mobilization Type Cross-Friction,Instrument Assisted,Rolling Comments cupping with AROM DF PF and AROM knee flexion Taping Patellofemoral Body Location B PF taping Treatment Focus Increase medial patellar pull and unload fat pad Type of Tape Kinesio Tape PT-OP-R Modalities Start: 04/04/25 15:14 Freq: Status: Active Protocol: Document 04/04/25 14:30 DCW (Rec: 04/04/25 15:17 DCW [id number]) Electric Stimulation Electric Stimulation Lebanese Stimulation Body Location R VMO Intensity 22.5 Patient Position Sitting Comments LAQ with contraction, 5 on/5 off PT-OP-T Assessment and Plan Start: 12/02/24 17:50 Freq: Status: Active Protocol: Document 04/09/25 13:43 AB (Rec: 04/09/25 14:44 AB Laptop) Physical Therapy Assessment Goals Two 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 Wrestling Coach Goal (LTG) Pt to present with improved right VMO contraction in order to improve patellofemoral tracking LTG Duration 04/20/25 One Impairment Pt does not have an appropriate home exercise program Short Term Goal (STG) Pt to be independent and compliant with an appropriate HEP STG Duration 03/20/25 Assessment Summary Assessment Patient reports hip soreness 2 -01/20 end of session. Unable to position pads for e- stim due to difficulty accessing area due to clothing tightness with patient reporting she didn't really like the stim post offer of shorts. Physical Therapy Plan Frequency and Duration Frequency of Treatment 1-2x/week Plan of Care Start Date 01/20/25 Plan of Care End Date 04/20/25 Therapeutic Interventions Therapeutic Interventions Home Exercise Program,Joint Mobilizations,Manual Therapy, Neuromuscular Re-education, Patient/Caregiver Education, Self-Care/Home Management,Soft Tissue Mobilization,Taping, Therapeutic Activities, Therapeutic Exercises Modalities Electric Stimulation Next Visit Focus/Plan Next Note Type Treatment Note Next Visit Plan VMO strengthening, joint mobilization, HEP
--- NOTE | 2025-04-18 13:06 | PT.OTN ---
Current Diagnoses Pain in right knee (04/18/25) Pain in left knee (04/18/25) Physical Therapy Treatment Note PT-OP-A Visit Information Start: 12/02/24 17:50 Freq: Status: Active Protocol: Document 04/18/25 12:18 DCW (Rec: 04/18/25 13:05 DCW [id number]) Out-Patient Physical Therapy Visit Information Visit Information Visit Type Progress Note Visit Start Time 12:18 Visit Stop Time 13:00 Visit Number 9 Number of PUMP RUNNER Visits 0 PT-OP-B Current Condition Start: 12/02/24 17:50 Freq: Status: Active Protocol: Document 12/02/24 17:00 DCW (Rec: 12/03/24 11:29 DCW [id number]) Current Condition History of Current Condition Current Complaints Bilateral knee pain, R>L History of Current Pt is a 19 year old female presenting with a history of Condition bilateral knee pain. 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 Notes knee pain is worse with activity and kneeling. Dances consistently 3x/week. Additionally, as she is in school in [place], she doesn 't have a vehicle, so she does a lot of walking, which after a mile or two starts to bother her knees. Notes she notices a lot of clicking in her knees. Has tried compression sleeves on her knees, which seemed to help some. Additionally notes she had a late diagnosis ( at 17 years old) of scoliosis. Treatment Goals Patient/Caregiver Decrease knee pain during dance Goals PT-OP-C Subjective Start: 12/02/24 17:50 Freq: Status: Active Protocol: Document 04/18/25 12:18 DCW (Rec: 04/18/25 12:22 DCW [id number]) OP-PT Subjective Patient Comments Patient Comments Pt reports she recently got a new job, so she's on her feet a lot more. Her foot has been sore the past two day, notes she is basically sore at work all day, but mainly in her back. PT-OP-F Manual Assessment Start: 12/02/24 17:50 Freq: Status: Active Protocol: Document 04/18/25 12:18 DCW (Rec: 04/18/25 12:46 DCW [id number]) Manual Assessments Soft Tissue Assessment Soft Tissue Mobility 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 Assessment Joint Mobility Assessment Joint Mobility Pain and crepitus with all patellar mobility, Assessment tenderness in left foot with joint mobilization PT-OP-L Special Tests Start: 12/02/24 17:50 Freq: Status: Active Protocol: Document 04/18/25 12:18 DCW (Rec: 04/18/25 12:46 DCW [id number]) Special Tests Knee Special Tests Patellar Grind Test Test Results Strongly positive R>L Patella Tap Test Results Negative Tomasa Test Test Results Negative Cotton Chondromalacia Test Results Positive bilaterally Anterior Draw Test Results Negative PT-OP-M Strength Start: 12/02/24 17:50 Freq: Status: Active Protocol: Document 04/18/25 12:18 DCW (Rec: 04/18/25 12:46 DCW [id number]) Hip Strength Hip Manual Muscle Testing Right External Rotation 3+ Fair+ Internal Rotation 4+ Good+ Left External Rotation 3+ Fair+ Internal Rotation 5 Normal Knee Strength Knee Manual Muscle Testing Right Flexion (S2) 4 Good Extension (L3) 4 Good Left Flexion (S2) 4+ Good+ Extension (L3) 4+ Good+ PT-OP-Q Treatments Start: 12/02/24 17:50 Freq: Status: Active Protocol: Document 04/18/25 12:18 DCW (Rec: 04/18/25 13:05 DCW [id number]) Therapeutic Exercises Sidelying Exercises Reverse Clamshell Sidelying Exercise Reverse Clamshell Name Side bilateral Resistance Lv 3 Clamshell Sidelying Exercise Clamshell Name Side bilateral Resistance Lv 3 PT-OP-R Modalities Start: 04/04/25 15:14 Freq: Status: Active Protocol: Document 04/04/25 14:30 DCW (Rec: 04/04/25 15:17 DCW [id number]) Electric Stimulation Electric Stimulation [place] Stimulation Body Location R VMO Intensity 22.5 Patient Position Sitting Comments LAQ with contraction, 5 on/5 off PT-OP-T Assessment and Plan Start: 12/02/24 17:50 Freq: Status: Active Protocol: Document 04/18/25 12:18 DCW (Rec: 04/18/25 13:05 DCW [id number]) Physical Therapy Assessment Impairments Impairments Functional Activities,Functional Mobility,Pain,Strength ,Tone Goals Two 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 Superintendent Car [employer] Goal (LTG) Pt to present with improved right VMO contraction in order to improve patellofemoral tracking LTG Duration 06/18/25 One Impairment Pt does not have an appropriate home exercise program Short Term Goal (STG Pt to be independent and compliant with an appropriate ) HEP STG Duration 05/18/25 Assessment Summary Assessment Pt showing some moderate progress overall, improvement with her VMO contraction and slight patellar tracking improvement. Does continue to exhibit grinding of the patella with knee extension. Foot appears to be healing following injury a few months ago. Pt does demonstrate today some decreased internal rotation strength bilaterally through hips. Continue to focus on joint mobility, strength, stability, and functional movement. Physical Therapy Plan Frequency and Duration Frequency of 1-2x/week Treatment Plan of Care Start 04/18/25 Date Plan of Care End 06/18/25 Date Therapeutic Interventions Therapeutic Home Exercise Program,Joint Mobilizations,Manual Interventions Therapy,Neuromuscular Re-education,Patient/Caregiver Education,Self-Care/Home Management,Soft Tissue Mobilization,Taping,Therapeutic Activities,Therapeutic Exercises Modalities Electric Stimulation Next Visit Focus/Plan Next Note Type Treatment Note Next Visit Plan VMO strengthening, joint mobilization, HEP
--- NOTE | 2025-04-18 13:06 | PT.OPPOC ---
Physical, Occupational & Speech Therapy At [facility] Current Diagnoses Pain in right knee (04/18/25) Pain in left knee (04/18/25) Visit Care Team Role Provider Type Russ Cottrell DO Attending Provider Physician Family Provider Primary Care Provider Referring Provider Specialty: Family Practice Address: [address] [place] [address], [facility] Email: [email or web address] Plan Of Care PT-OP-B Current Condition Start: 12/02/24 17:50 Freq: Status: Active Protocol: Document 12/02/24 17:00 DCW (Rec: 12/03/24 11:29 DCW [id number]) Current Condition History of Current Condition Current Complaints Bilateral knee pain, R>L History of Current Pt is a 19 year old female presenting with a history of Condition bilateral knee pain. 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 Notes knee pain is worse with activity and kneeling. Dances consistently 3x/week. Additionally, as she is in school in [place], she doesn 't have a vehicle, so she does a lot of walking, which after a mile or two starts to bother her knees. Notes she notices a lot of clicking in her knees. Has tried compression sleeves on her knees, which seemed to help some. Additionally notes she had a late diagnosis ( at 17 years old) of scoliosis. Treatment Goals Patient/Caregiver Decrease knee pain during dance Goals PT-OP-T Assessment and Plan Start: 12/02/24 17:50 Freq: Status: Active Protocol: Document 04/18/25 12:18 DCW (Rec: 04/18/25 13:05 DCW [id number]) Physical Therapy Assessment Impairments Impairments Functional Activities,Functional Mobility,Pain,Strength ,Tone Goals Two 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 Rental Clerk Goal (LTG) Pt to present with improved right VMO contraction in order to improve patellofemoral tracking LTG Duration 06/18/25 One Impairment Pt does not have an appropriate home exercise program Short Term Goal (STG Pt to be independent and compliant with an appropriate ) HEP STG Duration 05/18/25 Assessment Summary Assessment Pt showing some moderate progress overall, improvement with her VMO contraction and slight patellar tracking improvement. Does continue to exhibit grinding of the patella with knee extension. Foot appears to be healing following injury a few months ago. Pt does demonstrate today some decreased internal rotation strength bilaterally through hips. Continue to focus on joint mobility, strength, stability, and functional movement. Physical Therapy Plan Frequency and Duration Frequency of 1-2x/week Treatment Plan of Care Start 04/18/25 Date Plan of Care End 06/18/25 Date Therapeutic Interventions Therapeutic Home Exercise Program,Joint Mobilizations,Manual Interventions Therapy,Neuromuscular Re-education,Patient/Caregiver Education,Self-Care/Home Management,Soft Tissue Mobilization,Taping,Therapeutic Activities,Therapeutic Exercises Modalities Electric Stimulation Next Visit Focus/Plan Next Note Type Treatment Note Next Visit Plan VMO strengthening, joint mobilization, HEP Plan of Care Dates Plan of Care Start Date 04/18/25 Plan of Care End Date 06/18/25 Electronically Signed by: Bebo Weinberg, PT 04/18/25 2631 If you are in agreement with this Plan of Care, please return a signed and dated copy. I have reviewed this Plan of Care and certify that the skilled therapy services above are required to meet the patient?s needs. Physician Signature Date Printed Name and Credentials Clinical Instructor Signature Printed Name and Credentials
--- NOTE | 2025-04-24 14:38 | PT.OTN ---
Current Diagnoses Pain in right knee (04/24/25) Pain in left knee (04/24/25) Physical Therapy Treatment Note PT-OP-A Visit Information Start: 12/02/24 17:50 Freq: Status: Active Protocol: Document 04/24/25 13:51 DCW (Rec: 04/24/25 14:38 DCW [id number]) Out-Patient Physical Therapy Visit Information Visit Information Visit Type Treatment Note Visit Start Time 13:51 Visit Stop Time 14:30 Visit Number 10 Number of HEALTH CARE MARKETING SPECIALIST Visits 0 Evaluation Information Evaluation Date 12/02/24 PT-OP-B Current Condition Start: 12/02/24 17:50 Freq: Status: Active Protocol: Document 12/02/24 17:00 DCW (Rec: 12/03/24 11:29 DCW [id number]) Current Condition History of Current Condition Current Complaints Bilateral knee pain, R>L History of Current Pt is a 19 year old female presenting with a history of Condition bilateral knee pain. 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 Notes knee pain is worse with activity and kneeling. Dances consistently 3x/week. Additionally, as she is in school in [place], she doesn 't have a vehicle, so she does a lot of walking, which after a mile or two starts to bother her knees. Notes she notices a lot of clicking in her knees. Has tried compression sleeves on her knees, which seemed to help some. Additionally notes she had a late diagnosis ( at 17 years old) of scoliosis. Treatment Goals Patient/Caregiver Decrease knee pain during dance Goals PT-OP-C Subjective Start: 12/02/24 17:50 Freq: Status: Active Protocol: Document 04/24/25 13:51 DCW (Rec: 04/24/25 14:38 DCW [id number]) OP-PT Subjective Patient Comments Patient Comments Pt reports she has had a headache the past few days. PT-OP-F Manual Assessment Start: 12/02/24 17:50 Freq: Status: Active Protocol: Document 04/18/25 12:18 DCW (Rec: 04/18/25 12:46 DCW [id number]) Manual Assessments Soft Tissue Assessment Soft Tissue Mobility 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 Assessment Joint Mobility Assessment Joint Mobility Pain and crepitus with all patellar mobility, Assessment tenderness in left foot with joint mobilization PT-OP-L Special Tests Start: 12/02/24 17:50 Freq: Status: Active Protocol: Document 04/18/25 12:18 DCW (Rec: 04/18/25 12:46 DCW [id number]) Special Tests Knee Special Tests Patellar Grind Test Test Results Strongly positive R>L Patella Tap Test Results Negative Tomasa Test Test Results Negative Cotton Chondromalacia Test Results Positive bilaterally Anterior Draw Test Results Negative PT-OP-M Strength Start: 12/02/24 17:50 Freq: Status: Active Protocol: Document 04/18/25 12:18 DCW (Rec: 04/18/25 12:46 DCW [id number]) Hip Strength Hip Manual Muscle Testing Right External Rotation 3+ Fair+ Internal Rotation 4+ Good+ Left External Rotation 3+ Fair+ Internal Rotation 5 Normal Knee Strength Knee Manual Muscle Testing Right Flexion (S2) 4 Good Extension (L3) 4 Good Left Flexion (S2) 4+ Good+ Extension (L3) 4+ Good+ PT-OP-Q Treatments Start: 12/02/24 17:50 Freq: Status: Active Protocol: Document 04/24/25 13:51 DCW (Rec: 04/24/25 14:38 DCW [id number]) Gym Equipment Shuttle Recovery Bilateral Squats Resistance 67#->50# Shuttle Recovery Unstable Platform Hopping Details Plyometric Hopping Resistance 25# Manual Therapy Treatment Consent Patient gave verbal Yes consent for manual treatment Soft Tissue Mobilization LE Body Location Lower Extremity STM, calf, Hamstring L>R Mobilization Type Cross-Friction,Instrument Assisted,Rolling Comments cupping with AROM DF PF and AROM knee flexion Joint Mobilizations Patella Joint R Patella Direction All directions Grade III Body Position Supine Taping Patellofemoral Body Location R Patella Treatment Focus Increase medial patellar pull Type of Tape Kinesio Tape PT-OP-R Modalities Start: 04/04/25 15:14 Freq: Status: Active Protocol: Document 04/04/25 14:30 DCW (Rec: 04/04/25 15:17 DCW [id number]) Electric Stimulation Electric Stimulation [place] Stimulation Body Location R VMO Intensity 22.5 Patient Position Sitting Comments LAQ with contraction, 5 on/5 off PT-OP-T Assessment and Plan Start: 12/02/24 17:50 Freq: Status: Active Protocol: Document 04/24/25 13:51 DCW (Rec: 04/24/25 14:38 DCW [id number]) Physical Therapy Assessment Impairments Impairments Functional Activities,Functional Mobility,Pain,Strength ,Tone Goals Two 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 Correction Goal (LTG) Pt to present with improved right VMO contraction in order to improve patellofemoral tracking LTG Duration 06/18/25 One Impairment Pt does not have an appropriate home exercise program Short Term Goal (STG Pt to be independent and compliant with an appropriate ) HEP STG Duration 05/18/25 Assessment Summary Assessment Re-trial of K-tape today, with prior varied results. Pt foot appears to be improving, notes her knee has been less bothersome, however still not dancing after being told to give it a break. Continue to focus on strengthening, joint mobility, and stability. Physical Therapy Plan Frequency and Duration Frequency of 1-2x/week Treatment Plan of Care Start 04/18/25 Date Plan of Care End 06/18/25 Date Therapeutic Interventions Therapeutic Home Exercise Program,Joint Mobilizations,Manual Interventions Therapy,Neuromuscular Re-education,Patient/Caregiver Education,Self-Care/Home Management,Soft Tissue Mobilization,Taping,Therapeutic Activities,Therapeutic Exercises Modalities Electric Stimulation Next Visit Focus/Plan Next Note Type Treatment Note Next Visit Plan VMO strengthening, joint mobilization, HEP
--- NOTE | 2025-04-30 17:51 | PT.OTN ---
Current Diagnoses Pain in right knee (04/30/25) Pain in left knee (04/30/25) Physical Therapy Treatment Note PT-OP-A Visit Information Start: 12/02/24 17:50 Freq: Status: Active Protocol: Document 04/30/25 17:00 DCW (Rec: 04/30/25 17:50 DCW [id number]) Out-Patient Physical Therapy Visit Information Visit Information Visit Type Treatment Note Visit Start Time 17:00 Visit Stop Time 17:45 Visit Number 11 Number of BELL RINGER Visits 0 Evaluation Information Evaluation Date 12/02/24 PT-OP-B Current Condition Start: 12/02/24 17:50 Freq: Status: Active Protocol: Document 12/02/24 17:00 DCW (Rec: 12/03/24 11:29 DCW [id number]) Current Condition History of Current Condition Current Complaints Bilateral knee pain, R>L History of Current Pt is a 19 year old female presenting with a history of Condition bilateral knee pain. 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 Notes knee pain is worse with activity and kneeling. Dances consistently 3x/week. Additionally, as she is in school in [place], she doesn 't have a vehicle, so she does a lot of walking, which after a mile or two starts to bother her knees. Notes she notices a lot of clicking in her knees. Has tried compression sleeves on her knees, which seemed to help some. Additionally notes she had a late diagnosis ( at 17 years old) of scoliosis. Treatment Goals Patient/Caregiver Decrease knee pain during dance Goals PT-OP-C Subjective Start: 12/02/24 17:50 Freq: Status: Active Protocol: Document 04/30/25 17:00 DCW (Rec: 04/30/25 17:50 DCW [id number]) OP-PT Subjective Patient Comments Patient Comments Pt come in with K-tape still on, I think it's doing it 's job. Notes she has been getting occasional spasms in her left foot PT-OP-F Manual Assessment Start: 12/02/24 17:50 Freq: Status: Active Protocol: Document 04/18/25 12:18 DCW (Rec: 04/18/25 12:46 DCW [id number]) Manual Assessments Soft Tissue Assessment Soft Tissue Mobility 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 Assessment Joint Mobility Assessment Joint Mobility Pain and crepitus with all patellar mobility, Assessment tenderness in left foot with joint mobilization PT-OP-L Special Tests Start: 12/02/24 17:50 Freq: Status: Active Protocol: Document 04/18/25 12:18 DCW (Rec: 04/18/25 12:46 DCW [id number]) Special Tests Knee Special Tests Patellar Grind Test Test Results Strongly positive R>L Patella Tap Test Results Negative Tomasa Test Test Results Negative Cotton Chondromalacia Test Results Positive bilaterally Anterior Draw Test Results Negative PT-OP-M Strength Start: 12/02/24 17:50 Freq: Status: Active Protocol: Document 04/18/25 12:18 DCW (Rec: 04/18/25 12:46 DCW [id number]) Hip Strength Hip Manual Muscle Testing Right External Rotation 3+ Fair+ Internal Rotation 4+ Good+ Left External Rotation 3+ Fair+ Internal Rotation 5 Normal Knee Strength Knee Manual Muscle Testing Right Flexion (S2) 4 Good Extension (L3) 4 Good Left Flexion (S2) 4+ Good+ Extension (L3) 4+ Good+ PT-OP-Q Treatments Start: 12/02/24 17:50 Freq: Status: Active Protocol: Document 04/30/25 17:00 DCW (Rec: 04/30/25 17:50 DCW [id number]) Gym Equipment Shuttle Balance Red Details Lateral weight shift, Staggered stance Manual Therapy Treatment Consent Patient gave verbal Yes consent for manual treatment Soft Tissue Mobilization LE Body Location Lower Extremity STM, calf, Hamstring L>R Mobilization Type Cross-Friction,Instrument Assisted,Rolling Joint Mobilizations Patella Joint R Patella Direction All directions Grade III Body Position Supine Neuro Re-Education Treatment Balance Activities Ball/cone transfer Details Ball/cone transfer Surface AirEx, then firm PT-OP-R Modalities Start: 04/04/25 15:14 Freq: Status: Active Protocol: Document 04/04/25 14:30 DCW (Rec: 04/04/25 15:17 DCW [id number]) Electric Stimulation Electric Stimulation [place] Stimulation Body Location R VMO Intensity 22.5 Patient Position Sitting Comments LAQ with contraction, 5 on/5 off PT-OP-T Assessment and Plan Start: 12/02/24 17:50 Freq: Status: Active Protocol: Document 04/30/25 17:00 DCW (Rec: 04/30/25 17:50 DCW [id number]) Physical Therapy Assessment Impairments Impairments Functional Activities,Functional Mobility,Pain,Strength ,Tone Goals Two 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 Street Light Wirer Goal (LTG) Pt to present with improved right VMO contraction in order to improve patellofemoral tracking LTG Duration 06/18/25 One Impairment Pt does not have an appropriate home exercise program Short Term Goal (STG Pt to be independent and compliant with an appropriate ) HEP STG Duration 05/18/25 Assessment Summary Assessment Pt showing some slight improvements with VMO contraction, tolerating treatment well. Pt able to fully participate in work with no increased pain. Pt struggled significantly today with SLS balance when also bending forward. Continue focus on VMO, knee and foot function, and balance. Physical Therapy Plan Frequency and Duration Frequency of 1-2x/week Treatment Plan of Care Start 04/18/25 Date Plan of Care End 06/18/25 Date Therapeutic Interventions Therapeutic Home Exercise Program,Joint Mobilizations,Manual Interventions Therapy,Neuromuscular Re-education,Patient/Caregiver Education,Self-Care/Home Management,Soft Tissue Mobilization,Taping,Therapeutic Activities,Therapeutic Exercises Modalities Electric Stimulation Next Visit Focus/Plan Next Note Type Treatment Note Next Visit Plan VMO strengthening, joint mobilization, HEP
--- NOTE | 2025-05-05 17:47 | PT.OTN ---
Current Diagnoses Pain in right knee (05/05/25) Pain in left knee (05/05/25) Physical Therapy Treatment Note PT-OP-A Visit Information Start: 12/02/24 17:50 Freq: Status: Active Protocol: Document 05/05/25 17:05 DCW (Rec: 05/05/25 17:46 DCW [id number]) Out-Patient Physical Therapy Visit Information Visit Information Visit Type Treatment Note Visit Start Time 17:05 Visit Stop Time 17:45 Visit Number 12 Number of MEDICAL RESEARCH ASSISTANT Visits 0 Evaluation Information Evaluation Date 12/02/24 PT-OP-B Current Condition Start: 12/02/24 17:50 Freq: Status: Active Protocol: Document 12/02/24 17:00 DCW (Rec: 12/03/24 11:29 DCW [id number]) Current Condition History of Current Condition Current Complaints Bilateral knee pain, R>L History of Current Pt is a 19 year old female presenting with a history of Condition bilateral knee pain. 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 Notes knee pain is worse with activity and kneeling. Dances consistently 3x/week. Additionally, as she is in school in [place], she doesn 't have a vehicle, so she does a lot of walking, which after a mile or two starts to bother her knees. Notes she notices a lot of clicking in her knees. Has tried compression sleeves on her knees, which seemed to help some. Additionally notes she had a late diagnosis ( at 17 years old) of scoliosis. Treatment Goals Patient/Caregiver Decrease knee pain during dance Goals PT-OP-C Subjective Start: 12/02/24 17:50 Freq: Status: Active Protocol: Document 05/05/25 17:05 DCW (Rec: 05/05/25 17:46 DCW [id number]) OP-PT Subjective Patient Comments Patient Comments Pt reports that her foot has been more sore recently, and has been experiencing increased spasming. PT-OP-F Manual Assessment Start: 12/02/24 17:50 Freq: Status: Active Protocol: Document 04/18/25 12:18 DCW (Rec: 04/18/25 12:46 DCW [id number]) Manual Assessments Soft Tissue Assessment Soft Tissue Mobility 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 Assessment Joint Mobility Assessment Joint Mobility Pain and crepitus with all patellar mobility, Assessment tenderness in left foot with joint mobilization PT-OP-L Special Tests Start: 12/02/24 17:50 Freq: Status: Active Protocol: Document 04/18/25 12:18 DCW (Rec: 04/18/25 12:46 DCW [id number]) Special Tests Knee Special Tests Patellar Grind Test Test Results Strongly positive R>L Patella Tap Test Results Negative Tomasa Test Test Results Negative Cotton Chondromalacia Test Results Positive bilaterally Anterior Draw Test Results Negative PT-OP-M Strength Start: 12/02/24 17:50 Freq: Status: Active Protocol: Document 04/18/25 12:18 DCW (Rec: 04/18/25 12:46 DCW [id number]) Hip Strength Hip Manual Muscle Testing Right External Rotation 3+ Fair+ Internal Rotation 4+ Good+ Left External Rotation 3+ Fair+ Internal Rotation 5 Normal Knee Strength Knee Manual Muscle Testing Right Flexion (S2) 4 Good Extension (L3) 4 Good Left Flexion (S2) 4+ Good+ Extension (L3) 4+ Good+ PT-OP-Q Treatments Start: 12/02/24 17:50 Freq: Status: Active Protocol: Document 05/05/25 17:05 DCW (Rec: 05/05/25 17:46 DCW [id number]) Therapeutic Exercises Sitting Exercises Self STM Sitting Exercise Self rolling plantar surface Name Side left Equipment Used racquetball Standing Exercises Calf Stretch Standing Exercise Calf Stretch Name Side bilateral Equipment Used SANDRA Manual Therapy Treatment Consent Patient gave verbal Yes consent for manual treatment Soft Tissue Mobilization LE Body Location Lower Extremity STM, calf, plantar foot surface Mobilization Type Cross-Friction,Instrument Assisted,Rolling Neuro Re-Education Treatment Balance Activities Tilt Board Details Tilt board - DF/PF BOSU Details BOSU Comments EO/EC SLS Details SLS Surface AirEx PT-OP-R Modalities Start: 04/04/25 15:14 Freq: Status: Active Protocol: Document 04/04/25 14:30 DCW (Rec: 04/04/25 15:17 DCW [id number]) Electric Stimulation Electric Stimulation Faroese Stimulation Body Location R VMO Intensity 22.5 Patient Position Sitting Comments LAQ with contraction, 5 on/5 off PT-OP-T Assessment and Plan Start: 12/02/24 17:50 Freq: Status: Active Protocol: Document 05/05/25 17:05 DCW (Rec: 05/05/25 17:46 [facility] [id number]) Physical Therapy Assessment Impairments Impairments Functional Activities,Functional Mobility,Pain,Strength ,Tone Goals Two 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 Jail Goal (LTG) Pt to present with improved right VMO contraction in order to improve patellofemoral tracking LTG Duration 06/18/25 One Impairment Pt does not have an appropriate home exercise program Short Term Goal (STG Pt to be independent and compliant with an appropriate ) HEP STG Duration 05/18/25 Assessment Summary Assessment Pt feels that foot pain appears to be worsening, did discuss potential for next step seeing podiatry. Otherwise, pt doing well, knee pain decreasing, improved functional mobility. Physical Therapy Plan Frequency and Duration Frequency of 1-2x/week Treatment Plan of Care Start 04/18/25 Date Plan of Care End 06/18/25 Date Therapeutic Interventions Therapeutic Home Exercise Program,Joint Mobilizations,Manual Interventions Therapy,Neuromuscular Re-education,Patient/Caregiver Education,Self-Care/Home Management,Soft Tissue Mobilization,Taping,Therapeutic Activities,Therapeutic Exercises Modalities Electric Stimulation Next Visit Focus/Plan Next Note Type Treatment Note Next Visit Plan VMO strengthening, joint mobilization, HEP
--- NOTE | 2025-05-15 15:15 | PT.OTN ---
Current Diagnoses Pain in right knee (05/15/25) Pain in left knee (05/15/25) Physical Therapy Treatment Note PT-OP-A Visit Information Start: 12/02/24 17:50 Freq: Status: Active Protocol: Document 05/15/25 14:35 DCW (Rec: 05/15/25 15:15 DCW [id number]) Out-Patient Physical Therapy Visit Information Visit Information Visit Type Treatment Note Visit Start Time 14:35 Visit Stop Time 15:15 Visit Number 13 Number of VISCOSE CELLAR WORKER Visits 0 Evaluation Information Evaluation Date 12/02/24 PT-OP-B Current Condition Start: 12/02/24 17:50 Freq: Status: Active Protocol: Document 12/02/24 17:00 DCW (Rec: 12/03/24 11:29 DCW [id number]) Current Condition History of Current Condition Current Complaints Bilateral knee pain, R>L History of Current Pt is a 19 year old female presenting with a history of Condition bilateral knee pain. 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 Notes knee pain is worse with activity and kneeling. Dances consistently 3x/week. Additionally, as she is in school in [place], she doesn 't have a vehicle, so she does a lot of walking, which after a mile or two starts to bother her knees. Notes she notices a lot of clicking in her knees. Has tried compression sleeves on her knees, which seemed to help some. Additionally notes she had a late diagnosis ( at 17 years old) of scoliosis. Treatment Goals Patient/Caregiver Decrease knee pain during dance Goals PT-OP-C Subjective Start: 12/02/24 17:50 Freq: Status: Active Protocol: Document 05/15/25 14:35 DCW (Rec: 05/15/25 15:15 DCW [id number]) OP-PT Subjective Patient Comments Patient Comments Pt comes in wearing a mask today, notes she has been feeling a little congested and sore throat since returning from her trip to [place] yesterday. Notes walking around yesterday, she was having pain in her right foot. PT-OP-F Manual Assessment Start: 12/02/24 17:50 Freq: Status: Active Protocol: Document 04/18/25 12:18 DCW (Rec: 04/18/25 12:46 DCW [id number]) Manual Assessments Soft Tissue Assessment Soft Tissue Mobility 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 Assessment Joint Mobility Assessment Joint Mobility Pain and crepitus with all patellar mobility, Assessment tenderness in left foot with joint mobilization PT-OP-L Special Tests Start: 12/02/24 17:50 Freq: Status: Active Protocol: Document 04/18/25 12:18 DCW (Rec: 04/18/25 12:46 DCW [id number]) Special Tests Knee Special Tests Patellar Grind Test Test Results Strongly positive R>L Patella Tap Test Results Negative Tomasa Test Test Results Negative Cotton Chondromalacia Test Results Positive bilaterally Anterior Draw Test Results Negative PT-OP-M Strength Start: 12/02/24 17:50 Freq: Status: Active Protocol: Document 04/18/25 12:18 DCW (Rec: 04/18/25 12:46 DCW [id number]) Hip Strength Hip Manual Muscle Testing Right External Rotation 3+ Fair+ Internal Rotation 4+ Good+ Left External Rotation 3+ Fair+ Internal Rotation 5 Normal Knee Strength Knee Manual Muscle Testing Right Flexion (S2) 4 Good Extension (L3) 4 Good Left Flexion (S2) 4+ Good+ Extension (L3) 4+ Good+ PT-OP-Q Treatments Start: 12/02/24 17:50 Freq: Status: Active Protocol: Document 05/15/25 14:35 DCW (Rec: 05/15/25 15:15 DCW [id number]) Gym Equipment Shuttle Balance Red Details Lateral weight shift, Staggered stance Manual Therapy Treatment Consent Patient gave verbal Yes consent for manual treatment Soft Tissue Mobilization LE Body Location Lower Extremity STM, calf, plantar foot surface Mobilization Type Cross-Friction,Instrument Assisted,Rolling PT-OP-R Modalities Start: 04/04/25 15:14 Freq: Status: Active Protocol: Document 04/04/25 14:30 DCW (Rec: 04/04/25 15:17 DCW [id number]) Electric Stimulation Electric Stimulation Somali Stimulation Body Location R VMO Intensity 22.5 Patient Position Sitting Comments LAQ with contraction, 5 on/5 off PT-OP-T Assessment and Plan Start: 12/02/24 17:50 Freq: Status: Active Protocol: Document 05/15/25 14:35 DCW (Rec: 05/15/25 15:15 DCW [id number]) Physical Therapy Assessment Impairments Impairments Functional Activities,Functional Mobility,Pain,Strength ,Tone Goals Two 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 Pulp Plant Supervisor Goal (LTG) Pt to present with improved right VMO contraction in order to improve patellofemoral tracking LTG Duration 06/18/25 One Impairment Pt does not have an appropriate home exercise program Short Term Goal (STG Pt to be independent and compliant with an appropriate ) HEP STG Duration 05/18/25 Assessment Summary Assessment Increased tone in right medial calf and left lateral calf today, may be due to increased ambulation during recent trip to [place]. Pt did note walking more around time her right foot began to hurt. Does appear to be improving overall, less pain, improved knee mobility. Physical Therapy Plan Frequency and Duration Frequency of 1-2x/week Treatment Plan of Care Start 04/18/25 Date Plan of Care End 06/18/25 Date Therapeutic Interventions Therapeutic Home Exercise Program,Joint Mobilizations,Manual Interventions Therapy,Neuromuscular Re-education,Patient/Caregiver Education,Self-Care/Home Management,Soft Tissue Mobilization,Taping,Therapeutic Activities,Therapeutic Exercises Modalities Electric Stimulation Next Visit Focus/Plan Next Note Type Treatment Note Next Visit Plan VMO strengthening, joint mobilization, HEP
--- NOTE | 2025-05-22 11:31 | PT.OTN ---
Current Diagnoses Pain in right knee (05/22/25) Pain in left knee (05/22/25) Physical Therapy Treatment Note PT-OP-A Visit Information Start: 12/02/24 17:50 Freq: Status: Active Protocol: Document 05/22/25 10:51 DCW (Rec: 05/22/25 11:31 DCW [id number]) Out-Patient Physical Therapy Visit Information Visit Information Visit Type Treatment Note Visit Start Time 10:51 Visit Stop Time 11:30 Visit Number 14 Number of WATER ENGINEER Visits 0 Evaluation Information Evaluation Date 12/02/24 PT-OP-B Current Condition Start: 12/02/24 17:50 Freq: Status: Active Protocol: Document 12/02/24 17:00 DCW (Rec: 12/03/24 11:29 DCW [id number]) Current Condition History of Current Condition Current Complaints Bilateral knee pain, R>L History of Current Pt is a 19 year old female presenting with a history of Condition bilateral knee pain. 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 Notes knee pain is worse with activity and kneeling. Dances consistently 3x/week. Additionally, as she is in school in [place], she doesn 't have a vehicle, so she does a lot of walking, which after a mile or two starts to bother her knees. Notes she notices a lot of clicking in her knees. Has tried compression sleeves on her knees, which seemed to help some. Additionally notes she had a late diagnosis ( at 17 years old) of scoliosis. Treatment Goals Patient/Caregiver Decrease knee pain during dance Goals PT-OP-C Subjective Start: 12/02/24 17:50 Freq: Status: Active Protocol: Document 05/22/25 10:51 DCW (Rec: 05/22/25 11:31 DCW [id number]) OP-PT Subjective Patient Comments Patient Comments Pt reports they had to kneel a few times recently, and notes there was immediate pain in the knee. Also notes continuing cramping in the foot. PT-OP-F Manual Assessment Start: 12/02/24 17:50 Freq: Status: Active Protocol: Document 04/18/25 12:18 DCW (Rec: 04/18/25 12:46 DCW [id number]) Manual Assessments Soft Tissue Assessment Soft Tissue Mobility 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 Assessment Joint Mobility Assessment Joint Mobility Pain and crepitus with all patellar mobility, Assessment tenderness in left foot with joint mobilization PT-OP-L Special Tests Start: 12/02/24 17:50 Freq: Status: Active Protocol: Document 04/18/25 12:18 DCW (Rec: 04/18/25 12:46 DCW [id number]) Special Tests Knee Special Tests Patellar Grind Test Test Results Strongly positive R>L Patella Tap Test Results Negative Tomasa Test Test Results Negative Cotton Chondromalacia Test Results Positive bilaterally Anterior Draw Test Results Negative PT-OP-M Strength Start: 12/02/24 17:50 Freq: Status: Active Protocol: Document 04/18/25 12:18 DCW (Rec: 04/18/25 12:46 DCW [id number]) Hip Strength Hip Manual Muscle Testing Right External Rotation 3+ Fair+ Internal Rotation 4+ Good+ Left External Rotation 3+ Fair+ Internal Rotation 5 Normal Knee Strength Knee Manual Muscle Testing Right Flexion (S2) 4 Good Extension (L3) 4 Good Left Flexion (S2) 4+ Good+ Extension (L3) 4+ Good+ PT-OP-Q Treatments Start: 12/02/24 17:50 Freq: Status: Active Protocol: Document 05/22/25 10:51 DCW (Rec: 05/22/25 11:31 DCW [id number]) Therapeutic Exercises Supine Exercises Hamstring Supine Exercise Name HS stretch Side bilateral Standing Exercises Wall Squat Standing Exercise Wall Squat/wall sit Name Manual Therapy Treatment Consent Patient gave verbal Yes consent for manual treatment Soft Tissue Mobilization LE Body Location Bilateral Lower Extremity STM, calf, plantar foot surface Mobilization Type Cross-Friction,Instrument Assisted,Rolling Joint Mobilizations Patella Joint R Patella Direction All directions Grade III Body Position Supine Neuro Re-Education Treatment Balance Activities Tilt Board Details SLS PT-OP-R Modalities Start: 04/04/25 15:14 Freq: Status: Active Protocol: Document 04/04/25 14:30 DCW (Rec: 04/04/25 15:17 DCW [id number]) Electric Stimulation Electric Stimulation Sammarinese Stimulation Body Location R VMO Intensity 22.5 Patient Position Sitting Comments LAQ with contraction, 5 on/5 off PT-OP-T Assessment and Plan Start: 12/02/24 17:50 Freq: Status: Active Protocol: Document 05/22/25 10:51 DCW (Rec: 05/22/25 11:31 [facility] [id number]) Physical Therapy Assessment Impairments Impairments Functional Activities,Functional Mobility,Pain,Strength ,Tone Goals Two 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 Care Home Goal (LTG) Pt to present with improved right VMO contraction in order to improve patellofemoral tracking LTG Duration 06/18/25 One Impairment Pt does not have an appropriate home exercise program Short Term Goal (STG Pt to be independent and compliant with an appropriate ) HEP STG Duration 05/18/25 Assessment Summary Assessment Pt showing improvement with quad contraction, however still exhibiting increased pain/discomfort with bilateral feet when attempting to stand for extended time or perform dance activities. Physical Therapy Plan Frequency and Duration Frequency of 1-2x/week Treatment Plan of Care Start 04/18/25 Date Plan of Care End 06/18/25 Date Therapeutic Interventions Therapeutic Home Exercise Program,Joint Mobilizations,Manual Interventions Therapy,Neuromuscular Re-education,Patient/Caregiver Education,Self-Care/Home Management,Soft Tissue Mobilization,Taping,Therapeutic Activities,Therapeutic Exercises Modalities Electric Stimulation Next Visit Focus/Plan Next Note Type Treatment Note Next Visit Plan VMO strengthening, joint mobilization, HEP
--- NOTE | 2025-06-04 14:33 | PT.OTN ---
Current Diagnoses Pain in right knee (06/04/25) Pain in left knee (06/04/25) Physical Therapy Treatment Note PT-OP-A Visit Information Start: 12/02/24 17:50 Freq: Status: Active Protocol: Document 06/04/25 13:47 DCW (Rec: 06/04/25 14:33 DCW [id number]) Out-Patient Physical Therapy Visit Information Visit Information Visit Type Treatment Note Visit Start Time 13:47 Visit Stop Time 14:30 Visit Number 15 Number of LOCAL OWNER OPERATOR TRUCK DRIVER Visits 0 Evaluation Information Evaluation Date 12/02/24 PT-OP-B Current Condition Start: 12/02/24 17:50 Freq: Status: Active Protocol: Document 12/02/24 17:00 DCW (Rec: 12/03/24 11:29 DCW [id number]) Current Condition History of Current Condition Current Complaints Bilateral knee pain, R>L History of Current Pt is a 19 year old female presenting with a history of Condition bilateral knee pain. 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 Notes knee pain is worse with activity and kneeling. Dances consistently 3x/week. Additionally, as she is in school in [place], she doesn 't have a vehicle, so she does a lot of walking, which after a mile or two starts to bother her knees. Notes she notices a lot of clicking in her knees. Has tried compression sleeves on her knees, which seemed to help some. Additionally notes she had a late diagnosis ( at 17 years old) of scoliosis. Treatment Goals Patient/Caregiver Decrease knee pain during dance Goals PT-OP-C Subjective Start: 12/02/24 17:50 Freq: Status: Active Protocol: Document 06/04/25 13:47 DCW (Rec: 06/04/25 14:33 DCW [id number]) OP-PT Subjective Patient Comments Patient Comments Pt reports she tried to kneel onto her knee, noted some increased discomfort and felt it was swollen. PT-OP-F Manual Assessment Start: 12/02/24 17:50 Freq: Status: Active Protocol: Document 04/18/25 12:18 DCW (Rec: 04/18/25 12:46 DCW [id number]) Manual Assessments Soft Tissue Assessment Soft Tissue Mobility 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 Assessment Joint Mobility Assessment Joint Mobility Pain and crepitus with all patellar mobility, Assessment tenderness in left foot with joint mobilization PT-OP-L Special Tests Start: 12/02/24 17:50 Freq: Status: Active Protocol: Document 04/18/25 12:18 DCW (Rec: 04/18/25 12:46 DCW [id number]) Special Tests Knee Special Tests Patellar Grind Test Test Results Strongly positive R>L Patella Tap Test Results Negative Tomasa Test Test Results Negative Cotton Chondromalacia Test Results Positive bilaterally Anterior Draw Test Results Negative PT-OP-M Strength Start: 12/02/24 17:50 Freq: Status: Active Protocol: Document 04/18/25 12:18 DCW (Rec: 04/18/25 12:46 DCW [id number]) Hip Strength Hip Manual Muscle Testing Right External Rotation 3+ Fair+ Internal Rotation 4+ Good+ Left External Rotation 3+ Fair+ Internal Rotation 5 Normal Knee Strength Knee Manual Muscle Testing Right Flexion (S2) 4 Good Extension (L3) 4 Good Left Flexion (S2) 4+ Good+ Extension (L3) 4+ Good+ PT-OP-Q Treatments Start: 12/02/24 17:50 Freq: Status: Active Protocol: Document 06/04/25 13:47 DCW (Rec: 06/04/25 14:33 DCW [id number]) Gym Equipment Shuttle Balance Red Details Tandem Stance Manual Therapy Treatment Consent Patient gave verbal Yes consent for manual treatment Soft Tissue Mobilization LE Body Location Bilateral Lower Extremity STM, calf, plantar foot surface Mobilization Type Cross-Friction,Instrument Assisted,Rolling Joint Mobilizations Patella Joint B Patella Direction All directions Grade III Body Position Supine Neuro Re-Education Treatment Balance Activities BOSU Details BOSU Comments EO/EC SLS Details SLS Surface AirEx PT-OP-R Modalities Start: 04/04/25 15:14 Freq: Status: Active Protocol: Document 04/04/25 14:30 DCW (Rec: 04/04/25 15:17 DCW [id number]) Electric Stimulation Electric Stimulation Polish Stimulation Body Location R VMO Intensity 22.5 Patient Position Sitting Comments LAQ with contraction, 5 on/5 off PT-OP-T Assessment and Plan Start: 12/02/24 17:50 Freq: Status: Active Protocol: Document 06/04/25 13:47 DCW (Rec: 06/04/25 14:33 DCW [id number]) Physical Therapy Assessment Impairments Impairments Functional Activities,Functional Mobility,Pain,Strength ,Tone Goals Two 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 Truck Shop Mechanic Goal (LTG) Pt to present with improved right VMO contraction in order to improve patellofemoral tracking LTG Duration 06/18/25 One Impairment Pt does not have an appropriate home exercise program Short Term Goal (STG Pt to be independent and compliant with an appropriate ) HEP STG Duration 05/18/25 Assessment Summary Assessment Patellar mobility and strength improving, however continues to experience pain with patellofemoral tracking and kneeling. Tolerates balance challenges better, but still a bit of a struggle. Physical Therapy Plan Frequency and Duration Frequency of 1-2x/week Treatment Plan of Care Start 04/18/25 Date Plan of Care End 06/18/25 Date Therapeutic Interventions Therapeutic Home Exercise Program,Joint Mobilizations,Manual Interventions Therapy,Neuromuscular Re-education,Patient/Caregiver Education,Self-Care/Home Management,Soft Tissue Mobilization,Taping,Therapeutic Activities,Therapeutic Exercises Modalities Electric Stimulation Next Visit Focus/Plan Next Note Type Treatment Note Next Visit Plan VMO strengthening, joint mobilization, HEP
--- NOTE | 2025-06-12 16:08 | PT.OTN ---
Current Diagnoses Pain in right knee (06/12/25) Pain in left knee (06/12/25) Physical Therapy Treatment Note PT-OP-A Visit Information Start: 12/02/24 17:50 Freq: Status: Active Protocol: Document 06/12/25 15:20 AB (Rec: 06/12/25 16:05 AB [id number]) Out-Patient Physical Therapy Visit Information Visit Information Visit Type Treatment Note Visit Start Time 13:20 Visit Stop Time 16:02 Visit Number 16 Number of BRUSHER AND SHEARER Visits 1 PT-OP-B Current Condition Start: 12/02/24 17:50 Freq: Status: Active Protocol: Document 12/02/24 17:00 DCW (Rec: 12/03/24 11:29 DCW [id number]) Current Condition History of Current Condition Current Complaints Bilateral knee pain, R>L History of Current Pt is a 19 year old female presenting with a history of Condition bilateral knee pain. 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 Notes knee pain is worse with activity and kneeling. Dances consistently 3x/week. Additionally, as she is in school in [place], she doesn 't have a vehicle, so she does a lot of walking, which after a mile or two starts to bother her knees. Notes she notices a lot of clicking in her knees. Has tried compression sleeves on her knees, which seemed to help some. Additionally notes she had a late diagnosis ( at 17 years old) of scoliosis. Treatment Goals Patient/Caregiver Decrease knee pain during dance Goals PT-OP-C Subjective Start: 12/02/24 17:50 Freq: Status: Active Protocol: Document 06/12/25 15:20 AB (Rec: 06/12/25 16:05 AB [id number]) OP-PT Subjective Patient Comments Patient Comments Patient reports knees are more swollen this morning, reports she swells at times under her lip, this is the first time she noticed the knees are swollen at the same time as the hip. Patient comments she should make MD aware. Patient reports the chin swelling has been since she was 16 years old. Descends 6 inch steps with excessive ER at hips, early heel off if positioned more neutral and if foot is held on step inc knee valgus noted. PT-OP-F Manual Assessment Start: 12/02/24 17:50 Freq: Status: Active Protocol: Document 04/18/25 12:18 DCW (Rec: 04/18/25 12:46 DCW [id number]) Manual Assessments Soft Tissue Assessment Soft Tissue Mobility 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 Assessment Joint Mobility Assessment Joint Mobility Pain and crepitus with all patellar mobility, Assessment tenderness in left foot with joint mobilization PT-OP-L Special Tests Start: 12/02/24 17:50 Freq: Status: Active Protocol: Document 04/18/25 12:18 DCW (Rec: 04/18/25 12:46 DCW [id number]) Special Tests Knee Special Tests Patellar Grind Test Test Results Strongly positive R>L Patella Tap Test Results Negative Tomasa Test Test Results Negative Cotton Chondromalacia Test Results Positive bilaterally Anterior Draw Test Results Negative PT-OP-M Strength Start: 12/02/24 17:50 Freq: Status: Active Protocol: Document 04/18/25 12:18 DCW (Rec: 04/18/25 12:46 DCW [id number]) Hip Strength Hip Manual Muscle Testing Right External Rotation 3+ Fair+ Internal Rotation 4+ Good+ Left External Rotation 3+ Fair+ Internal Rotation 5 Normal Knee Strength Knee Manual Muscle Testing Right Flexion (S2) 4 Good Extension (L3) 4 Good Left Flexion (S2) 4+ Good+ Extension (L3) 4+ Good+ PT-OP-Q Treatments Start: 12/02/24 17:50 Freq: Status: Active Protocol: Document 06/12/25 15:20 AB (Rec: 06/12/25 16:05 AB [id number]) Therapeutic Exercises Supine Exercises Hamstring Supine Exercise Name HS stretch initiated piriformis stretch R reports no sensation of stretch Side bilateral Reps/Minutes 60 sec each LE Comments verbal cues Sidelying Exercises Reverse Clamshell Sidelying Exercise Reverse Clamshell Name Side bilateral Resistance Lv 3 Reps/Minutes X 15 Comments initiated with out band Clamshell Sidelying Exercise Clamshell Name Side bilateral Resistance Lv 3 Reps/Minutes X 15 sidelying hip abd Sidelying Exercise HEP Name Side bilateral Resistance level 4 band Reps/Minutes X 15 each LEand one one min hold Standing Exercises Calf Stretch Standing Exercise Calf Stretches gastroc and soleus Name Side bilateral Equipment Used SANDRA, stairs Reps/Minutes 60 sec each stretch each position Comments verbal cues PT-OP-R Modalities Start: 04/04/25 15:14 Freq: Status: Active Protocol: Document 04/04/25 14:30 DCW (Rec: 04/04/25 15:17 DCW [id number]) Electric Stimulation Electric Stimulation Croatian Stimulation Body Location R VMO Intensity 22.5 Patient Position Sitting Comments LAQ with contraction, 5 on/5 off PT-OP-T Assessment and Plan Start: 12/02/24 17:50 Freq: Status: Active Protocol: Document 06/12/25 15:20 AB (Rec: 06/12/25 16:05 AB [id number]) Physical Therapy Assessment Goals Two 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 Senior Living Goal (LTG) Pt to present with improved right VMO contraction in order to improve patellofemoral tracking 06/12/2025 Patella continues to track laterally, VMO contraction continues to be a problem LTG Duration 06/18/25 One Impairment Pt does not have an appropriate home exercise program Short Term Goal (STG Pt to be independent and compliant with an appropriate ) HEP 06/12/2025 Patient reports performing HEP 2-3X a week STG Duration 05/18/25 Assessment Summary Assessment Calf muscle stiffness impacting knee alignment when descending stairs, hip weakness also likely contributing to knee alignment. As HEP is primarily strengthening exercises and patient has instructions for twice a day, discussed once a day 4 X a week and patient made aware 2-3 X a week is not enough strengthening for a functional outcome.
--- NOTE | 2025-06-12 18:58 | PT.OPPN ---
Current Diagnoses Pain in right knee (06/12/25) Pain in left knee (06/12/25) Physical Therapy Progress Note PT-OP-A Visit Information Start: 12/02/24 17:50 Freq: Status: Active Protocol: Document 06/12/25 15:20 AB (Rec: 06/12/25 16:05 AB [id number]) Out-Patient Physical Therapy Visit Information Visit Information Visit Type Treatment Note Visit Start Time 13:20 Visit Stop Time 16:02 Visit Number 16 Number of ABNORMAL PSYCHOLOGY TEACHER Visits 1 PT-OP-B Current Condition Start: 12/02/24 17:50 Freq: Status: Active Protocol: Document 12/02/24 17:00 DCW (Rec: 12/03/24 11:29 DCW [id number]) Current Condition History of Current Condition Current Complaints Bilateral knee pain, R>L History of Current Pt is a 19 year old female presenting with a history of Condition bilateral knee pain. 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 Notes knee pain is worse with activity and kneeling. Dances consistently 3x/week. Additionally, as she is in school in [place], she doesn 't have a vehicle, so she does a lot of walking, which after a mile or two starts to bother her knees. Notes she notices a lot of clicking in her knees. Has tried compression sleeves on her knees, which seemed to help some. Additionally notes she had a late diagnosis ( at 17 years old) of scoliosis. Treatment Goals Patient/Caregiver Decrease knee pain during dance Goals PT-OP-C Subjective Start: 12/02/24 17:50 Freq: Status: Active Protocol: Document 06/12/25 15:20 AB (Rec: 06/12/25 16:05 AB [id number]) OP-PT Subjective Patient Comments Patient Comments Patient reports knees are more swollen this morning, reports she swells at times under her lip, this is the first time she noticed the knees are swollen at the same time as the hip. Patient comments she should make MD aware. Patient reports the chin swelling has been since she was 16 years old. Descends 6 inch steps with excessive ER at hips, early heel off if positioned more neutral and if foot is held on step inc knee valgus noted. PT-OP-F Manual Assessment Start: 12/02/24 17:50 Freq: Status: Active Protocol: Document 04/18/25 12:18 DCW (Rec: 04/18/25 12:46 DCW [id number]) Manual Assessments Soft Tissue Assessment Soft Tissue Mobility 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 Assessment Joint Mobility Assessment Joint Mobility Pain and crepitus with all patellar mobility, Assessment tenderness in left foot with joint mobilization PT-OP-L Special Tests Start: 12/02/24 17:50 Freq: Status: Active Protocol: Document 04/18/25 12:18 DCW (Rec: 04/18/25 12:46 DCW [id number]) Special Tests Knee Special Tests Patellar Grind Test Test Results Strongly positive R>L Patella Tap Test Results Negative Tomasa Test Test Results Negative Cotton Chondromalacia Test Results Positive bilaterally Anterior Draw Test Results Negative PT-OP-M Strength Start: 12/02/24 17:50 Freq: Status: Active Protocol: Document 06/12/25 18:55 [facility] (Rec: 06/12/25 18:58 [facility] [id number]) Hip Strength Hip Manual Muscle Testing Right External Rotation 4 Good Left External Rotation 4 Good Knee Strength Knee Manual Muscle Testing Right Flexion (S2) 5 Normal Extension (L3) 4 Good Left Flexion (S2) 5 Normal Extension (L3) 4+ Good+ PT-OP-T Assessment and Plan Start: 12/02/24 17:50 Freq: Status: Active Protocol: Document 06/12/25 18:55 [facility] (Rec: 06/12/25 18:58 [facility] [id number]) Physical Therapy Assessment Goals Two 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 Fdc Goal (LTG) Pt to present with improved right VMO contraction in order to improve patellofemoral tracking 06/12/2025 Patella continues to track laterally, VMO contraction continues to be a problem LTG Duration 08/13 One Impairment Pt does not have an appropriate home exercise program Short Term Goal (STG Pt to be independent and compliant with an appropriate ) HEP 06/12/2025 Patient reports performing HEP 2-3X a week STG Duration 07/14 Fdc Goal (LTG) Pt will have 5/5 B knee ext strength and ER strength to allow for pt to do typical activities w/o pain LTG Duration 08/21 Assessment Summary Assessment Pt has overall reported improvements with PT but has had multiple setbacks including L foot injury that have made recovery difficult. She demonstrates improving adherence to HEP and is improving w/strength but still has notable weakness especially of VMO. She would benefit from cont PT to improve strength and dec pain in order to return to typical activities without pain. Physical Therapy Plan Frequency and Duration Frequency of 1-2x/week Treatment Duration of 10 treatment (weeks) Plan of Care Start 06/12/25 Date Plan of Care End 08/21/25 Date Therapeutic Interventions Therapeutic Home Exercise Program,Joint Mobilizations,Manual Interventions Therapy,Neuromuscular Re-education,Patient/Caregiver Education,Self-Care/Home Management,Soft Tissue Mobilization,Taping,Therapeutic Activities,Therapeutic Exercises Modalities Electric Stimulation Next Visit Focus/Plan Next Note Type Treatment Note Next Visit Plan VMO strengthening, joint mobilization, HEP
--- NOTE | 2025-06-12 18:58 | PT.OPPOC ---
Physical, Occupational & Speech Therapy At [facility] Current Diagnoses Pain in right knee (06/12/25) Pain in left knee (06/12/25) Visit Care Team Role Provider Type Russ Cottrell DO Attending Provider Physician Family Provider Primary Care Provider Referring Provider Specialty: Family Practice Address: [address] [place] [address], [facility] Email: [email or web address] Plan Of Care PT-OP-B Current Condition Start: 12/02/24 17:50 Freq: Status: Active Protocol: Document 12/02/24 17:00 DCW (Rec: 12/03/24 11:29 [facility] [id number]) Current Condition History of Current Condition Current Complaints Bilateral knee pain, R>L History of Current Pt is a 19 year old female presenting with a history of Condition bilateral knee pain. 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 Notes knee pain is worse with activity and kneeling. Dances consistently 3x/week. Additionally, as she is in school in [place], she doesn 't have a vehicle, so she does a lot of walking, which after a mile or two starts to bother her knees. Notes she notices a lot of clicking in her knees. Has tried compression sleeves on her knees, which seemed to help some. Additionally notes she had a late diagnosis ( at 17 years old) of scoliosis. 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 Skilled Nursing Goal (LTG) Pt to present with improved right VMO contraction in order to improve patellofemoral tracking 06/12/2025 Patella continues to track laterally, VMO contraction continues to be a problem LTG Duration 08/13 One Impairment Pt does not have an appropriate home exercise program Short Term Goal (STG Pt to be independent and compliant with an appropriate ) HEP 06/12/2025 Patient reports performing HEP 2-3X a week STG Duration 07/14 New Car Make Ready Worker Goal (LTG) Pt will have 5/5 B knee ext strength and ER strength to allow for pt to do typical activities w/o pain LTG Duration 08/21 Assessment Summary Assessment Pt has overall reported improvements with PT but has had multiple setbacks including L foot injury that have made recovery difficult. She demonstrates improving adherence to HEP and is improving w/strength but still has notable weakness especially of VMO. She would benefit from cont PT to improve strength and dec pain in order to return to typical activities without pain. Physical Therapy Plan Frequency and Duration Frequency of 1-2x/week Treatment Duration of 10 treatment (weeks) Plan of Care Start 06/12/25 Date Plan of Care End 08/21/25 Date Therapeutic Interventions Therapeutic Home Exercise Program,Joint Mobilizations,Manual Interventions Therapy,Neuromuscular Re-education,Patient/Caregiver Education,Self-Care/Home Management,Soft Tissue Mobilization,Taping,Therapeutic Activities,Therapeutic Exercises Modalities Electric Stimulation Next Visit Focus/Plan Next Note Type Treatment Note Next Visit Plan VMO strengthening, joint mobilization, HEP Plan of Care Dates Plan of Care Start Date 06/12/25 Plan of Care End Date 08/21/25 Electronically Signed by: Nydia Miller, PT 06/12/25 1495 If you are in agreement with this Plan of Care, please return a signed and dated copy. I have reviewed this Plan of Care and certify that the skilled therapy services above are required to meet the patient?s needs. Physician Signature Date Printed Name and Credentials Clinical Instructor Signature Printed Name and Credentials
--- NOTE | 2025-06-18 17:46 | PT.OTN ---
Current Diagnoses Pain in right knee (06/18/25) Pain in left knee (06/18/25) Physical Therapy Treatment Note PT-OP-A Visit Information Start: 12/02/24 17:50 Freq: Status: Active Protocol: Document 06/18/25 17:00 DCW (Rec: 06/18/25 17:46 DCW [id number]) Out-Patient Physical Therapy Visit Information Visit Information Visit Type Treatment Note Visit Start Time 17:00 Visit Stop Time 17:45 Visit Number 17 Number of TEACHER SPECIALIST Visits 0 Evaluation Information Evaluation Date 12/02/24 PT-OP-B Current Condition Start: 12/02/24 17:50 Freq: Status: Active Protocol: Document 12/02/24 17:00 DCW (Rec: 12/03/24 11:29 DCW [id number]) Current Condition History of Current Condition Current Complaints Bilateral knee pain, R>L History of Current Pt is a 19 year old female presenting with a history of Condition bilateral knee pain. 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 Notes knee pain is worse with activity and kneeling. Dances consistently 3x/week. Additionally, as she is in school in [place], she doesn 't have a vehicle, so she does a lot of walking, which after a mile or two starts to bother her knees. Notes she notices a lot of clicking in her knees. Has tried compression sleeves on her knees, which seemed to help some. Additionally notes she had a late diagnosis ( at 17 years old) of scoliosis. Treatment Goals Patient/Caregiver Decrease knee pain during dance Goals PT-OP-C Subjective Start: 12/02/24 17:50 Freq: Status: Active Protocol: Document 06/18/25 17:00 DCW (Rec: 06/18/25 17:46 DCW [id number]) OP-PT Subjective Patient Comments Patient Comments Pt reports she was walking up the stairs last night, and her knee began to hurt, and now they are both really flared-up. PT-OP-F Manual Assessment Start: 12/02/24 17:50 Freq: Status: Active Protocol: Document 04/18/25 12:18 DCW (Rec: 04/18/25 12:46 DCW [id number]) Manual Assessments Soft Tissue Assessment Soft Tissue Mobility 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 Assessment Joint Mobility Assessment Joint Mobility Pain and crepitus with all patellar mobility, Assessment tenderness in left foot with joint mobilization PT-OP-L Special Tests Start: 12/02/24 17:50 Freq: Status: Active Protocol: Document 04/18/25 12:18 DCW (Rec: 04/18/25 12:46 DCW [id number]) Special Tests Knee Special Tests Patellar Grind Test Test Results Strongly positive R>L Patella Tap Test Results Negative Tomasa Test Test Results Negative Cotton Chondromalacia Test Results Positive bilaterally Anterior Draw Test Results Negative PT-OP-M Strength Start: 12/02/24 17:50 Freq: Status: Active Protocol: Document 06/12/25 18:55 [facility] (Rec: 06/12/25 18:58 [facility] [id number]) Hip Strength Hip Manual Muscle Testing Right External Rotation 4 Good Left External Rotation 4 Good Knee Strength Knee Manual Muscle Testing Right Flexion (S2) 5 Normal Extension (L3) 4 Good Left Flexion (S2) 5 Normal Extension (L3) 4+ Good+ PT-OP-Q Treatments Start: 12/02/24 17:50 Freq: Status: Active Protocol: Document 06/18/25 17:00 DCW (Rec: 06/18/25 17:46 DCW [id number]) Manual Therapy Treatment Consent Patient gave verbal Yes consent for manual treatment Soft Tissue Mobilization LE Body Location Bilateral Lower Extremity STM, calf, plantar foot surface Mobilization Type Cross-Friction,Instrument Assisted,Rolling Joint Mobilizations Patella Joint B Patella Direction All directions Grade III Body Position Supine Neuro Re-Education Treatment Balance Activities BOSU Details BOSU Comments EO/EC SLS Details SLS Surface AirEx PT-OP-R Modalities Start: 04/04/25 15:14 Freq: Status: Active Protocol: Document 04/04/25 14:30 DCW (Rec: 04/04/25 15:17 DCW [id number]) Electric Stimulation Electric Stimulation Grenadian Stimulation Body Location R VMO Intensity 22.5 Patient Position Sitting Comments LAQ with contraction, 5 on/5 off PT-OP-T Assessment and Plan Start: 12/02/24 17:50 Freq: Status: Active Protocol: Document 06/18/25 17:00 DCW (Rec: 06/18/25 17:46 DCW [id number]) Physical Therapy Assessment Impairments Impairments Functional Activities,Functional Mobility,Pain,Strength ,Tone Goals Two 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 Retirement Goal (LTG) Pt to present with improved right VMO contraction in order to improve patellofemoral tracking 06/12/2025 Patella continues to track laterally, VMO contraction continues to be a problem LTG Duration 08/13 One Impairment Pt does not have an appropriate home exercise program Short Term Goal (STG Pt to be independent and compliant with an appropriate ) HEP 06/12/2025 Patient reports performing HEP 2-3X a week STG Duration 07/14 Retirement Goal (LTG) Pt will have 5/5 B knee ext strength and ER strength to allow for pt to do typical activities w/o pain LTG Duration 08/21 Assessment Summary Assessment Pt continues to struggle with knee pain, now noting with increased soreness from stairs last night that her knees are getting worse, despite stopping dance. Worried about returning to school at the end of the month due to pain. Has follow-up with PCP next week, pt noted she wants to ask about cortisone injections. May also benefit from MRI at this point. Physical Therapy Plan Frequency and Duration Frequency of 1-2x/week Treatment Duration of 10 treatment (weeks) Plan of Care Start 06/12/25 Date Plan of Care End 08/21/25 Date Therapeutic Interventions Therapeutic Home Exercise Program,Joint Mobilizations,Manual Interventions Therapy,Neuromuscular Re-education,Patient/Caregiver Education,Self-Care/Home Management,Soft Tissue Mobilization,Taping,Therapeutic Activities,Therapeutic Exercises Modalities Electric Stimulation Next Visit Focus/Plan Next Note Type Treatment Note Next Visit Plan VMO strengthening, joint mobilization, HEP
--- NOTE | 2025-06-26 18:06 | PT.OTN ---
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 Patient rates pain 11/22 start of session. Gym Equipment Shuttle Recovery Bilateral Squats Resistance 67# Shuttle Recovery Unstable Platform Reps/Time X15 w/o ball X 15 ball btw knees Therapeutic Exercises Supine Exercises hip stretches Supine Exercise Name 1.fig 4 to chest with knee opp sh 2. fig 4 knee to ches Equipment Used HEP Reps/Minutes 60 sec each stretch each LE Comments verbal cues Standing Exercises glute med isometric Standing Exercise HEP Name Reps/Minutes one minute hold X 1 each LE Comments verbal and visual cues Calf Stretch Standing Exercise Calf Stretches gastroc and soleus Name Side bilateral Equipment Used towel roll to HEP Reps/Minutes 60 on stairs each stretch then on towel roll Comments VC Wall Squat Standing Exercise Wall Squat/wall sit Name Side bilateral Resistance level 5 band Reps/Minutes post 4-5 trials w/ wo band, ball X 15 without hold Comments alsov23 sec hold, monitored for pain Physical Therapy Assessment Goals Two 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 Granulator Tender Goal (LTG) Pt to present with improved right VMO contraction in order to improve patellofemoral tracking 06/12/2025 Patella continues to track laterally, VMO contraction continues to be a problem LTG Duration 08/13 One Impairment Pt does not have an appropriate home exercise program Short Term Goal (STG Pt to be independent and compliant with an appropriate ) HEP 06/12/2025 Patient reports performing HEP 2-3X a week STG Duration 07/14 Skilled Nursing Goal (LTG) Pt will have 5/5 B knee ext strength and ER strength to allow for pt to do typical activities w/o pain LTG Duration 08/21 Assessment Summary Assessment End of session patient rates pain 01/20 R proximal tib fib area. Physical Therapy Plan Frequency and Duration Frequency of 1-2x/week Treatment Duration of 10 treatment (weeks) Plan of Care Start 06/12/25 Date Plan of Care End 08/21/25 Date Next Visit Focus/Plan Next Note Type Treatment Note Next Visit Plan VMO strengthening, joint mobilization, HEP
--- NOTE | 2025-07-02 15:25 | PT.OTN ---
Current Diagnoses Pain in right knee (07/02/25) Pain in left knee (07/02/25) Physical Therapy Treatment Note PT OP: Lower Back/Lower Extremity Start: 06/26/25 13:49 Freq: Status: Active Protocol: Document 06/26/25 13:49 AB (Rec: 06/26/25 14:32 AB [id number]) Out-Patient Physical Therapy Visit Information Visit Information Visit Type Treatment Note Visit Note [id number] Visit Start Time 13:52 Visit Stop Time 14:30 Visit Number 18 Number of ENGINEERING PROFESSIONALS Visits 1 Progress Note Due 07/12/25 OP-PT Subjective Patient Comments Patient Comments Patient reports having a lot of pain today, reports closing for a show may have contributed as she was on her feet a lot, reports her knee locked up walking up stairs last week R knee. Patient rates pain 11/22 start of session. Gym Equipment Shuttle Recovery Bilateral Squats Resistance 67# Shuttle Recovery Unstable Platform Reps/Time X15 w/o ball X 15 ball btw knees Therapeutic Exercises Supine Exercises hip stretches Supine Exercise Name 1.fig 4 to chest with knee opp sh 2. fig 4 knee to ches Equipment Used HEP Reps/Minutes 60 sec each stretch each LE Comments verbal cues Standing Exercises glute med isometric Standing Exercise HEP Name Reps/Minutes one minute hold X 1 each LE Comments verbal and visual cues Calf Stretch Standing Exercise Calf Stretches gastroc and soleus Name Side bilateral Equipment Used towel roll to HEP Reps/Minutes 60 on stairs each stretch then on towel roll Comments VC Wall Squat Standing Exercise Wall Squat/wall sit Name Side bilateral Resistance level 5 band Reps/Minutes post 4-5 trials w/ wo band, ball X 15 without hold Comments alsov23 sec hold, monitored for pain Physical Therapy Assessment Goals Two 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 Dsp Engineer Goal (LTG) Pt to present with improved right VMO contraction in order to improve patellofemoral tracking 06/12/2025 Patella continues to track laterally, VMO contraction continues to be a problem LTG Duration 08/13 One Impairment Pt does not have an appropriate home exercise program Short Term Goal (STG Pt to be independent and compliant with an appropriate ) HEP 06/12/2025 Patient reports performing HEP 2-3X a week STG Duration 07/14 [facility] Goal (LTG) Pt will have 5/5 B knee ext strength and ER strength to allow for pt to do typical activities w/o pain LTG Duration 08/21 Assessment Summary Assessment End of session patient rates pain 01/20 R proximal tib fib area. Physical Therapy Plan Frequency and Duration Frequency of 1-2x/week Treatment Duration of 10 treatment (weeks) Plan of Care Start 06/12/25 Date Plan of Care End 08/21/25 Date Next Visit Focus/Plan Next Note Type Treatment Note Next Visit Plan VMO strengthening, joint mobilization, HEP
--- NOTE | 2025-07-02 16:15 | PT.OTN ---
Current Diagnoses Pain in right knee (07/02/25) Pain in left knee (07/02/25) Physical Therapy Treatment Note PT OP: Lower Back/Lower Extremity Start: 06/26/25 13:49 Freq: Status: Active Protocol: Document 07/02/25 15:20 DCW (Rec: 07/02/25 16:15 DCW [id number]) Out-Patient Physical Therapy Visit Information Visit Information Visit Type Treatment Note Visit Start Time 15:20 Visit Stop Time 16:00 Visit Number 19 Number of DOULA Visits 0 Progress Note Due 07/12/25 Evaluation Information Evaluation Date 12/02/24 OP-PT Subjective Patient Comments Patient Comments Pt worried about returning to school next week, feels her knees aren't as good as she was hoping they would be. Has follow-up with PCP tomorrow. Gym Equipment Shuttle Recovery Hopping Details Plyometric Hopping Double Leg Resistance 50# Shuttle Balance Red Details Tandem Stance (Balloon Volley), Lateral weight shift Manual Therapy Treatment Consent Patient gave verbal Yes consent for manual treatment Soft Tissue Mobilization LE Body Location Bilateral Lower Extremity STM, calf, plantar foot surface Mobilization Type Cross-Friction,Strumming,Sustained Pressure Joint Mobilizations Patella Joint B Patella Direction All directions Grade III Body Position Supine Physical Therapy Assessment Impairments Impairments Functional Activities,Functional Mobility,Pain,Strength ,Tone Goals Two 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 Skilled Nursing Goal (LTG) Pt to present with improved right VMO contraction in order to improve patellofemoral tracking 06/12/2025 Patella continues to track laterally, VMO contraction continues to be a problem LTG Duration 08/13 One Impairment Pt does not have an appropriate home exercise program Short Term Goal (STG Pt to be independent and compliant with an appropriate ) HEP 06/12/2025 Patient reports performing HEP 2-3X a week STG Duration 07/14 Supervisor Cutting Department Goal (LTG) Pt will have 5/5 B knee ext strength and ER strength to allow for pt to do typical activities w/o pain LTG Duration 08/21 Assessment Summary Assessment Pt tolerating well, but still experiencing increased knee pain with most activities. Returning to school next week, worried about the increased workload on her knee. Has appointment with PCP tomorrow. Physical Therapy Plan Frequency and Duration Frequency of 1-2x/week Treatment Duration of 10 treatment (weeks) Plan of Care Start 06/12/25 Date Plan of Care End 08/21/25 Date Therapeutic Interventions Therapeutic Home Exercise Program,Joint Mobilizations,Manual Interventions Therapy,Neuromuscular Re-education,Patient/Caregiver Education,Self-Care/Home Management,Soft Tissue Mobilization,Taping,Therapeutic Activities,Therapeutic Exercises Modalities Electric Stimulation Next Visit Focus/Plan Next Note Type Treatment Note Next Visit Plan VMO strengthening, joint mobilization, HEP
--- NOTE | 2025-09-29 16:51 | PT.OPDS ---
Current Diagnoses Pain in right knee (07/02/25) Pain in left knee (07/02/25) Visit Care Team Role Provider Type Russ Cottrell DO Attending Provider Physician Family Provider Primary Care Provider Referring Provider Specialty: Family Practice Address: [address] [place] [address], [facility] Email: [email or web address] Visit Number Visit Number 19 Discharge Summary PT OP: Lower Back/Lower Extremity Start: 06/26/25 13:49 Freq: Status: Active Protocol: Document 09/29/25 16:50 DCW (Rec: 09/29/25 16:51 DCW [id number]) Out-Patient Physical Therapy Visit Information Visit Information Visit Type Discharge Summary Physical Therapy Assessment Assessment Summary Assessment Pt has not been seen in nearly three months, the POC has since . Pt will be discharged from skilled therapy at this time, will require a new referral in order to return in the future. Physical Therapy Plan Discharge Physical Therapy Discharge Reasons No Longer Attending PT
== END 2025-09-30 08:47 | disposition home or self-care (01) ==
LOC: PHYS 15:15
PROVIDERS: Family Provider Family Medicine; PCP Family Medicine; Referring Provider Family Medicine; Visit Provider Family Medicine
DX: M25.562 Pain in left knee (principal); M25.561 Pain in right knee
CPT/HCPCS: 97110; 97112; 97140; 97162